=== PATIENT | male | born 1965 | race Caucasian/White ===

== ENCOUNTER 2016-07-04 20:09 | Inpatient (IN) ==
[2016-07-04] MEDS ORDERED: ZOFRAN IV ONE ×2 (20:34→23:02)
[2016-07-04] MEDS ORDERED: MORPHINE IV ONE ×2 (20:34→20:48)
[2016-07-04 21:08] LABS: MANUAL DIFF NEEDED? NO
[2016-07-04 21:11] LABS: BASO% 0.2 % (0.0-0.8); EOS% 1.2 % (0.0-10.0); HEMATOCRIT 40.3 % (42.0-52.0); HEMOGLOBIN 14.7 g/dL (14.0-18.0); IMM GRAN# 0.02 X1000 (0.0-0.04); IMM GRAN% 0.2 % (0.0-0.5); LYMPH# 1.41 X1000 (1.2-3.4); LYMPH% 17.2 % (20.5-51.1); MCH 34.7 PG (27-31); MCHC 36.5 g/dL (33-37); MONO# 0.93 X1000 (0.11-0.59); MONO% 11.3 % (1.7-9.3); MPV 11.2 FL (7.4-10.4); NEUT% 69.9 % (42.2-75.2); PLT 122 X1000 (130-400); RBC 4.24 XMIL (4.7-6.1)
[2016-07-04 21:26] LABS: AGAP 11; ALBUMIN 2.8 g/dL (3.5-5.0); ALKALINE PHOSPHATASE 293 U/L (32-122); AMYLASE 62 U/L (20-200); BUN 9 mg/dL (8-22); CALCIUM 8.1 mg/dL (8.8-10.2); CHLORIDE 102 mmol/L (98-107); COSMO 269; GOT 244 U/L (10-34); GPT 277 U/L (10-44); LIPASE 102 U/L (13-60); POTASSIUM 3.3 mmol/L (3.5-5.1); SODIUM 135 mmol/L (136-145); TCO2 22 mmol/L (25-35); TOTAL BILIRUBIN 0.98 mg/dL (0.20-1.00); TOTAL PROTEIN 7.4 g/dL (6.3-8.3)
--- NOTE | 2016-07-04 22:29 | Diag Imaging Result Document ---
PROCEDURE NAME: FLAT/UPRIGHT ABD/1 VIEW CHEST - 07/04/2016 FRONTAL CHEST X-RAY AND 2 VIEWS OF THE ABDOMEN: COMPARISON: None. FINDINGS: There is some strandy atelectasis in the lung bases. No substantial infiltrates. Heart size is normal. No pneumothorax or large effusion. Abdomen is dense consistent with ascites. No bowel obstruction or free air. No abnormal calcifications. There is a severe chronic deformity of the right hip, probably a chronic subcapital hip fracture and secondary osteoarthritis. IMPRESSION: Ascites.
--- NOTE | 2016-07-04 22:32 | PROVIDER DOCUMENTATION ---
This chart was entered by Pia Sheppard Scribe, acting as scribe for Maryanne Burnham PA. HPI-Abdominal Pain/GI Problem - General Chief Complaint: Abdominal Pain Stated Complaint: ABD PAIN Time Seen by Provider: 07/04/16 20:13 Source: patient Allergies/Adverse Reactions: Patient Allergies Allergy/AdvReac Type Severity Reaction Status Date / Time No Known Allergies Allergy Verified 07/04/16 20:22 Home Medications: Home Medication List Medication Instructions Recorded Confirmed Last Taken Type NK [No Home Medications] 07/04/16 07/04/16 Unknown History - History of Present Illness-ABD Nature of Presenting Problems: 51 year old M presents to the ED with a cc of ABD pain and distention with an onset of 1 week ago. Pt states that he had a small bowel movement today but it was not normal. Pt denies nausea, vomiting, and diarrhea. Abdominal Pain Onset Location: reports: generalized abdomen Pain Radiation: reports: no radiation Quality of Pain: reports: aching Severity in ED: reports: mild Onset/Duration: reports: 1 week ago Timing: reports: still present, constant Activities at Onset: reports: none Modifying Factors: improves with: nothing Associated Symptoms: reports: constipation Bruising or Bleeding Gums?: No Similar Symptoms Previously?: No Recently seen or treated by another doctor?: No Review of Systems - Adult - REVIEW OF SYSTEMS - ADULT Constitutional: denies: chills, fever Eyes: reports: no symptoms reported Ears, Nose, Mouth & Throat: reports: no symptoms reported Cardiovascular: denies: chest pain, palpitations Respiratory: reports: shortness of breath. denies: cough Gastrointestinal: reports: abdominal pain, constipation. denies: diarrhea, nausea, vomiting Genitourinary: reports: no symptoms reported Musculoskeletal: reports: no symptoms reported Integumentary: reports: no symptoms reported Neurological: reports: no symptoms reported Psychiatric: reports: no symptoms reported Endocrine: reports: no symptoms reported Hematologic/Lymphatic: reports: no symptoms reported Allergic/Immunologic: reports: no symptoms reported All Other Systems: Reviewed and Negative Past History - Adult - PAST MEDICAL HISTORY-ADULT Review of Records: reports: Nursing Assessment Review, Medications Reviewed Major Childhood Illnesses: reports: denies history - PRIOR SURGERIES/PROCEDURES Surgical/Procedure History: reports: none - IMMUNIZATION STATUS Childhood Immunizations: See Nurse Assessment Flu Vaccine: See Nurse Assessment - SOCIAL HISTORY Smoking: cigarettes Provider spent 3-5 mins advising pt. on dangers of tobacco.: Discussed manners to quit use, and f/u contacts for add'l counseling. Substance Use: amphetamines, cocaine Alcohol Use Frequency: twice a week Number of drinks per typical drinking period:: 3-4 drinks Physical Exam-General - PHYSICAL EXAM-ADULT Initial Vital Signs Reviewed: Yes - CONSTITUTIONAL General Appearance: alert, mild distress - RESPIRATORY Respiratory: chest non-tender, lungs clear, normal breath sounds - CARDIOVASCULAR Cardiovascular: normal peripheral pulses, regular rate, rhythm, no edema - GASTROINTESTINAL (ABDOMEN) Abdominal Exam: distended, tenderness (generalized) - MUSCULOSKELETAL Back Exam: no CVA tenderness - SKIN Integumentary: normal color, normal turgor, warm/dry - PSYCHIATRIC Psych/Mental Status: normal mood/affect, normal thought content, normal thought process, oriented x 3 Progress - PLAN OF CARE/RESULTS Progress/Plan/Lab Results: Vital Signs - 8 hr 07/04/16 20:17 Temperature 98.2 F Pulse Rate 89 Respiratory Rate 18 Blood Pressure 144/80 O2 Sat by Pulse Oximetry 98 Orders Category Date Time Status Saline Loc DIRECTED Care 07/04/16 20:34 Active NPO Diet 07/04/16 20:34 Active FLAT/UPRIGHT ABD/1 VIEW CHEST [RAD] Stat Exams 07/04/16 20:34 Ordered AMYLASE [CHEM] Stat Lab 07/04/16 20:34 Uncollected CBC WITH ELECTRONIC DIFF [HEME] Stat Lab 07/04/16 20:34 Uncollected COMPREHENSIVE METABOLIC PANEL [CHEM] Stat Lab 07/04/16 20:34 Uncollected LIPASE [CHEM] Stat Lab 07/04/16 20:34 Uncollected URINALYSIS W/POSS RFLX CULT-1 [URINALYSIS] Stat Lab 07/04/16 20:34 Uncollected URINE DRUG SCREEN Stat Lab 07/04/16 20:34 Uncollected Morphine Med 07/04/16 20:34 Discontinued 10 mg IV NOW ONE Ondansetron [Zofran] Med 07/04/16 20:34 Discontinued 4 mg IV NOW ONE Discussed with Dr. Cunningham, agrees with treatment, disposition and plan. Result Diagrams: 07/04/16 21:00 07/04/16 21:00 - EKG 1 Time of EKG reading by physician:: 23:04 EKG Read and Signed by:: Gelacio Cunningham EKG Interpretation (*Must complete 3 of following elements*): Normal Rate: 74 Rhythm: NSR [place]: normal - XRAY 1 XRAY: Bilateral XRAY Study: Abdomen Impression: Normal (no specific bowel gas pattern) - CT/MRI 1 CT Study: Abdomen, Pelvis Impression: Abnormal (cirrhosis. large amount of ascities. Severe chornic deformity of the right hip per Dr. Irving, radiology) - CONSULTS/PCP/HOSPITALIST Notification #1 *Consult/PCP/Hospitalist*: Dr. Lam, hospitalist Time Discussed: 22:38 Reason/Comments: cirhrossis, ascites Consult Disposition: Admit Departure - Departure Time of Disposition Decision: 22:39 DIAGNOSIS: Cirrhosis Qualifiers: Hepatic cirrhosis type: unspecified hepatic cirrhosis Ascites presence: with ascites Qualified Code(s): K74.60 - Unspecified cirrhosis of liver Ascites Qualifiers: Ascites type: other type Qualified Code(s): R18.8 - Other ascites Disposition: ADMITTED INPATIENT 09 Certified Medical Emergency: Emergent Condition: Stable Referrals and Follow-Ups: None,PCP [Primary Care Provider] - - Critical Care Note This patient required my direct & personal management of CC.: No Attestation - Physician/ GÓMEZ Attestation Patient care was provided by Advanced Practice Provider:: Yes Advanced Practice Provider:: Maryanne Burnham Advanced Practice Provider documentation review:: The Mid-level provider documentation, treatment plan and medical decision making was reviewed by the physician who agrees with all treatment and medical decision making by the P. This chart was documented by the paolo bloom, (Pia Sheppard Scribe) and accurately reflects the services I performed and decisions made by , Maryanne Burnham PA, as attested by the provider's signature.
[2016-07-04 23:36] LABS: MAGNESIUM 1.8 mg/dL (1.5-2.7)
[2016-07-04 23:40] LABS: INR 1.33; PROTIME 14.2 Seconds (9.2-11.7); PTT 31.8 Seconds (22.0-36.0)
[2016-07-05 00:04] LABS: CK INDEX 2.3 (0.0-2.5); CK-MB 4.85 ng/mL (0.0-5.0)
[2016-07-05] MEDS ORDERED: TYLENOL PO PRN (00:49)
[2016-07-05] MEDS ORDERED: POTASSIUM CHLORIDE 20 MEQ/SWI 20 MEQ/100 ML IVPB IV ONE (01:48)
[2016-07-05] MEDS: MORPHINE IV PRN ×3 (02:51→22:26)
[2016-07-05] MEDS: ZOFRAN IV PRN (02:51)
[2016-07-05] MEDS ORDERED: PNEUMOVAX 23 IM ONE (03:44)
--- NOTE | 2016-07-05 05:51 | HISTORY AND PHYSICAL ---
TIME: 2315 hours. CHIEF COMPLAINT: Abdominal pain. HISTORY OF PRESENT ILLNESS: Mr. Arroyo is a 51-year-old male, who reports no previous medical problems or past surgeries. He presents to the ER tonight complaining of abdominal pain and distention that started approximately 1 week ago last Saturday. He states that the pain in his abdomen is generalized and is pressure in nature. He denies any nausea, vomiting or diarrhea. He reports that his last bowel movement was yesterday and was normal in color. No hematochezia or melena. Patient denies any dysuria though did report some problems with urinary retention when his abdominal pain and distention first began but denied any recent problems with this over the last few days. He reports associated symptoms of shortness of breath and some substernal chest pain as well. He states that both his shortness of breath and his chest pain began when his abdominal pain started. He reports that his chest pain is nonradiating. It stays localized in the substernal area and is also a pressure-type feeling in nature. He denies any recent illicit drug use, though does report a previous history of methamphetamine and cocaine use. The patient also reports that he drinks approximately a 6-pack a month, no more than 1-2 beers a week. He denied any previous heavier alcohol use. Upon evaluation in the ER, the patient was found to have a distended abdomen. He was having some abdominal discomfort as well. The patient is also dyspneic. This is likely secondary to his distended abdomen. He was found to have elevated liver enzymes as well as elevated lipase of 102. An abdomen flat and upright showed ascites. A CT of the abdomen and pelvis was also performed, which showed cirrhosis with a large amount of ascites. At this time, the patient will be admitted for further evaluation. REVIEW OF SYSTEMS: A 14-point review of systems was conducted with the patient and all were negative except for pertinent positives mentioned above in HPI. PAST MEDICAL HISTORY: The patient denies any previous past medical problems. SURGICAL HISTORY: The patient denies any previous surgeries. SOCIAL HISTORY: Patient is a current half a pack per day smoker. He has done so since the age of 15. He denies any present illicit drug use, though does report a history of methamphetamine and cocaine abuse in the past. The patient states that he drinks approximately a 6- pack a month. He states no more than 1-2 beers a week and denies any previous heavier alcohol use. The patient reports that he currently lives here in [place]. He is disabled. FAMILY HISTORY: The patient reports that he does not have contact with his mother or father and does not know their past medical history. He reports that he has 1 brother that is and 1 brother that is living, though does not have contact with him either. ALLERGIES: The patient denies any known allergies. HOME MEDICATIONS: Patient denies any home medications or [id number] regular medication use. He does report that over the past few days that he has been using BC powders for pain relief approximately 1-2 a day. DIAGNOSTIC DATA: Laboratory results: White blood cell count 8.2, hemoglobin 14.7, hematocrit 40.3, platelet count 122,000. PT 14.2, INR 1.3, PTT 31.8. Sodium 135, potassium 3.3, chloride 102, bicarb 22, BUN 9, creatinine 0.6, glucose 108, calcium 8.1, magnesium 1.8, total bilirubin is 0.98, AST 244, ALT 27, alkaline phosphatase 293. Ammonia level is 131, CK Total 213. CK index is 2.3. CK-MB is 4.85, troponin was less than 0.01. Albumin level is 2.8, amylase 62, lipase 102. DIAGNOSTIC STUDIES: EKG shows normal sinus rhythm at a rate of 74, with a QTc of 440. CT abdomen pelvis with IV contrast showed cirrhosis with a large amount of ascites. There is also noted a severe chronic deformity of the right hip, per radiology. The patient did have a portable chest x-ray, which showed a possible slight increased pulmonary vascular markings, though no acute abnormality noted, though we are awaiting the official radiology over-read. PHYSICAL EXAMINATION: VITAL SIGNS: Temperature 98.3 degrees, heart rate 73, respirations 16, blood pressure 142/85, oxygen saturation is 99% room air. GENERAL: Mr. Arroyo is a pleasant 51-year-old male, who was resting in the ER stretcher. Though he was slightly dyspneic upon examination, he was not in any acute distress and was maintaining adequate oxygen saturation at 98% on room air. He was awake, alert and able to answer all questions appropriately. HEENT: Head is atraumatic, normocephalic. Pupils are equal, round, react to light, and were 3 mm bilaterally and brisk. Sclerae were white. No lesions noted. Subconjunctivae were pink. Oral mucosa was moist. Oropharynx was clear. NECK: Supple. Trachea midline. No JVD noted. No carotid bruits noted upon auscultation bilaterally. CARDIOVASCULAR: Patient has normal S1, S2. No murmurs, gallops, or rubs appreciated with a regular rate and rhythm. PULMONARY: Patient has symmetrical chest expansion bilaterally. Lung sounds were clear to auscultation in bilateral full aguilar. ABDOMEN: Slightly firm and distended. Patient has had generalized tenderness noted upon palpation. Bowel sounds were present in all 4 quadrants were hyperactive. EXTREMITIES: No cyanosis, clubbing, or edema noted. Pulse, motor and sensory were intact in all extremities. Radial pulses as well as pedal pulses bilaterally with 3+. Capillary refill was less than 3. INTEGUMENTARY: Patient's skin was pink, warm, dry, and intact. No lesions or sores noted. NEUROLOGICAL: Patient was alert, oriented to person, place, time, and situation. Cranial nerves 2-12 were grossly intact. ASSESSMENT AND PLAN: 1. Cirrhosis with ascites. For this, we have placed an order for the patient to have a therapeutic paracentesis in the morning. We will do an infusion of albumin prior to the procedure. We have placed a Gastroenterology consult with Dr. Delacruz and will await her evaluation and further recommendations as well. We have also placed a hepatitis profile and are awaiting those results. The patient does have a history of alcohol abuse , though he denies any heavy everyday drinking. We will closely monitor him for any signs and symptoms of alcohol withdrawal and will continue to monitor. 2. Abdominal pain. For this, we have placed an order for the patient to receive 4 mg of morphine IV q.4 hours p.r.n. for pain. 3. Dyspnea. The patient does report associated dyspnea as well as some substernal chest pain that began with the onset of his abdominal pain and distention. We will closely monitor the patient's respiratory status. We have placed orders for supplemental oxygen as needed though at this time, he is maintaining oxygen saturation of 98% on room air. He will be placed on telemetry also. To further evaluate his chest pain, we did order a series of cardiac enzymes and we will continue to his cardiovascular status closely. 4. Transaminitis. This is likely related to patient's cirrhosis. We will continue to monitor this. We will repeat a CMP in the morning. We will avoid hepatotoxic medications and will continue to monitor closely. 5. Mild hypokalemia. We did replace this with 20 mEq of potassium IV over 2 hours and will recheck his potassium level with morning labs. 6. Alcohol abuse. We will counseling on the importance of him to stop drinking given his findings of cirrhosis with ascites and transaminitis and will continue to follow. 7. Tobacco abuse. We will continue to camp head counselor the patient on smoking cessation during his admission and upon discharge. We will give the patient a nicotine patch while in the hospital and will continue to follow. The patient will be placed on the medical floor with telemetry. He will have vital signs q.4 hours. We will do strict intake and output. DVT prophylaxis will be provided with SCDs at this time given that the patient will be going for paracentesis in the morning. He will be NPO until his abdominal ultrasound is performed and his paracentesis is performed and then we can resume a regular diet. Pending diagnostic studies at this time are urinalysis, urine drug screen, hepatitis profile, abdominal ultrasound and ultrasound-guided paracentesis. Further orders and recommendations pending hospital course, diagnostic studies and physician evaluation. Dictated by BRITNI Arreola for Mariaa Lam MD cc: Mariaa Lam MD MTDD
[2016-07-05] MEDS ORDERED: ALBUMIN 25% IV SCH ×3 (06:00→06:37)
[2016-07-05 06:24] LABS: MANUAL DIFF NEEDED? NO
[2016-07-05 06:28] LABS: BASO% 0.3 % (0.0-0.8); EOS# 0.07 X1000 (0.0-0.7); EOS% 0.8 % (0.0-10.0); HEMATOCRIT 43.9 % (42.0-52.0); HEMOGLOBIN 15.2 g/dL (14.0-18.0); IMM GRAN# 0.02 X1000 (0.0-0.04); IMM GRAN% 0.2 % (0.0-0.5); LYMPH# 1.74 X1000 (1.2-3.4); MCH 33.6 PG (27-31); MCHC 34.6 g/dL (33-37); MCV 97.1 FL (81-99); MONO# 0.88 X1000 (0.11-0.59); MONO% 9.6 % (1.7-9.3); NEUT% 70.1 % (42.2-75.2); PLT 134 X1000 (130-400); RBC 4.52 XMIL (4.7-6.1)
--- NOTE | 2016-07-05 06:36 | EKG Report ---
Test Performed on : 07/04/2016 11:04:26 PM Test Reason : SOB Blood Pressure : / mmHG Vent. Rate : 074 BPM Atrial Rate : 074 BPM P-R Int : 126 ms QRS Dur : 078 ms QT Int : 398 ms P-R-T Axes : 052 001 027 degrees QTc Int : 441 ms Normal sinus rhythm. Normal ECG No previous ECGs available Unconfirmed Result
[2016-07-05 07:06] LABS: AGAP 10; ALBUMIN 2.9 g/dL (3.5-5.0); ALKALINE PHOSPHATASE 252 U/L (32-122); BUN 11 mg/dL (8-22); CALCIUM 8.4 mg/dL (8.8-10.2); CHLORIDE 101 mmol/L (98-107); COSMO 269; GOT 258 U/L (10-34); GPT 283 U/L (10-44); POTASSIUM 4.1 mmol/L (3.5-5.1); SODIUM 135 mmol/L (136-145); TCO2 24 mmol/L (25-35); TOTAL BILIRUBIN 1.57 mg/dL (0.20-1.00); TOTAL PROTEIN 8.2 g/dL (6.3-8.3)
--- NOTE | 2016-07-05 08:04 | Diag Imaging Result Document ---
PROCEDURE NAME: CHEST-PORTABLE - 07/04/2016 PORTABLE CHEST X-RAY, 07/05/2016: COMPARISON: 07/04/2016. FINDINGS: Lung volumes are much lower, now severely low, with strandy atelectasis or infiltrate in the lung bases. Otherwise, no change. IMPRESSION: Lower lung volumes with worsening bibasilar infiltrates or atelectasis.
--- NOTE | 2016-07-05 08:32 | Diag Imaging Result Document ---
PROCEDURE NAME: CT ABD/PELVIS W/ IV CONT ONLY - 07/04/2016 CT OF THE ABDOMEN WITH INTRAVENOUS CONTRAST AND CLARITY: FINDINGS: There is dependent atelectasis in the lung bases. There is marked ascites. The liver is shrunken and nodular in contour consistent with cirrhosis. There are no previous studies available for comparison. The spleen measures 13.3 cm in superior inferior dimension which is slightly above the normal range. The adrenal glands are not enlarged. There may be some esophageal varices and there are gastric varices. The gallbladder is distended measuring 8.7 cm in length and 5.4 cm in short axis. The portal vein is patent. The pancreas is unremarkable. The adrenal glands are not enlarged. There are 2 discontinuous segments of the proximal small bowel which are distended. This may be due to ileus. There is gas and stool in the colon. The kidneys are without evidence of hydronephrosis or mass. There is no evidence of significant adenopathy. CT OF THE PELVIS WITH INTRAVENOUS CONTRAST: The appendix is normal in appearance. There is a large amount of free fluid. There is gas and stool in the rectum. There are severe degenerative changes in the right hip. There is some minimal spondylotic changes in the lumbar spine. IMPRESSION: Severe cirrhosis with ascites. Possible ileus. Comparison with previous studies, if available, is recommended.
--- NOTE | 2016-07-05 13:15 | Diag Imaging Result Document ---
PROCEDURE NAME: US ABDOMEN-COMPLETE - 07/05/2016 ULTRASOUND ABDOMEN COMPLETE: COMPARISON: CT abdomen and pelvis, 07/04/2016. FINDINGS: The liver is severely atrophic and nodular as well as hyperechoic. This is compatible with severe cirrhosis. The gallbladder is mildly dilated. No wall thickening. There is moderate to large ascites. Both kidneys are normal. Spleen is enlarged measuring 13.4 x 12.3 x 5.7 cm. The common bile duct measures 5 mm. Aorta, IVC, and main portal vein are patent. The pancreas is normal. IMPRESSION: Advanced hepatic cirrhosis. Dilated gallbladder, nonspecific. Ascites.
--- NOTE | 2016-07-05 13:16 | Diag Imaging Result Document ---
PROCEDURE NAME: US PARACENTESIS - 07/05/2016 ULTRASOUND-GUIDED PARACENTESIS: COMPARISON: None. FINDINGS: The risks and benefits of the procedure were discussed with the patient. All questions were answered. Written and verbal informed consent was obtained. Overlying skin was prepped and draped in sterile fashion. Anesthesia was injected with injection of 7 mL of 1% lidocaine. The paracentesis catheter was advanced until the return of relatively clear ascites fluid. 1.2 L was removed. The catheter was withdrawn intact. The patient reported no symptoms from the procedure. IMPRESSION: Successful and uncomplicated ultrasound-guided paracentesis.
[2016-07-05 19:47] LABS: TOTAL PROTEIN 0.4 g/dL (6.3-8.3)
[2016-07-05 20:11] LABS: DIFF NEEDED? YES; MONOS 95 %; POLYS 5 %; WBC BF 210 /cumm
[2016-07-05 21:40] LABS: URINE CULTURE NEEDED? NO; URINE MICRO REVIEW NEEDED? NO; URINE SOURCE CLEAN CATCH
[2016-07-05 21:48] LABS: BILIRUBIN URINE NEGATIVE (NEGATIVE); BLOOD URINE NEGATIVE (NEGATIVE); COLOR YELLOW; GLUCOSE URINE NEGATIVE (NEGATIVE); LEUKOCYTES URINE NEGATIVE (NEGATIVE); NITRITE URINE NEGATIVE (NEGATIVE); PROTEIN URINE NEGATIVE (NEGATIVE); SP GRAVITY URINE 1.011; TURBIDITY URINE HAZY (CLEAR); UR EPITHELIAL CELLS <10 /HPF (<10); URINE BACTERIA NEGATIVE /HPF; URINE RBC <10 /HPF (<10); URINE WBC <10 /HPF (<10); UROBILINOGEN URINE 4 mg/dL (NORMAL)
[2016-07-05 22:44] LABS: UR AMPHETAMINES QUAL NONE DETECTED (NONE DETECT); UR BARBITUATES QUAL NONE DETECTED (NONE DETECT); UR BENZODIAZEPIN QUAL NONE DETECTED (NONE DETECT); UR CANNABINOIDS QUAL NONE DETECTED (NONE DETECT); UR COCAINE QUAL PRESUMPTIVE POSITIVE (NONE DETECT); UR METHADONE QUAL NONE DETECTED (NONE DETECT); UR OPIATES QUAL PRESUMPTIVE POSITIVE (NONE DETECT); UR OXYCODONE QUAL NONE DETECTED (NONE DETECT); UR PCP QUAL NONE DETECTED (NONE DETECT)
[2016-07-06] MEDS: MORPHINE IV PRN ×3 (03:38→23:34)
[2016-07-06] MEDS ORDERED: TUMS EXTRA STRENGTH PO ONE (03:42)
[2016-07-06] MEDS ORDERED: PRILOSEC PO SCH (07:00)
[2016-07-06] MEDS ORDERED: ANUSOL-HC SUPP PR ONE (11:30)
[2016-07-06 11:45] LABS: HEPATITIS PROFILE ACUTE SEE COMMENTS
[2016-07-06] MEDS: NICODERM PATCH TD PRN ×2 (12:05→21:22)
--- NOTE | 2016-07-06 16:29 | PROGRESS NOTE ---
DATE: 07/06/2016 SUBJECTIVE: Patient reports feeling tired all over but denies any fever or chills. OBJECTIVE: This is a chronically ill-looking, malnourished and frail 51-year-old male, lying in bed, in no acute distress.HEENT: Head is normocephalic, atraumatic. Anicteric sclerae and pale conjunctivae. Mucous membranes moist. Neck: Supple. No JVD noted. No carotid bruits. No lymphadenopathy. No thyromegaly. Cardiovascular: S1, S2 heard. No murmurs, gallops, or rubs. Regular rate and rhythm. Respiratory: Clear bilaterally to auscultation. No work of breathing or using accessory muscles. Abdomen: Ascites clearly noted. No signs of peritoneal irritation. Bowel sounds present. No organomegaly. Extremities: No clubbing, cyanosis, or edema. Peripheral pulses present in both legs. Neurological: Patient is awake, alert. LABORATORY DATA: Hepatitis panel, reported hepatitis surface antibody present. Hepatitis C present. ASSESSMENT AND PLAN: 1. Cirrhosis with ascites. We had a long conversation with the patient about social history. He reports that he was a careless drinker and also initially in the [facility] it was documented that he was not using any drugs. Now he admits that he was using IV drugs in this case, meth of approximately 1 year ago a few times according to him. At this time, although he is not completely sure it could be 6 months ago too so that could be the reason why he got hepatitis B. Also the hepatitis C is positive so what we are going to do is to do PCR to check viral load. Also we are going to check HIV to see if there is no infection. Patient advised to contact his sexual partner to inform her that she needs to be checked as well. At this point, we are going to keep this patient in the hospital. Will wait for the results of the ascetic fluid to confirm that this ascites is because of portal hypertension. 2. Transaminitis. That is because of the acute hepatitis that the patient has developed. 3. Alcohol abuse. Patient has been advised about stopping drinking alcohol and he was informed that if he starts drinking alcohol again with this chronic hepatitis C and on top of this, acute hepatitis B infection, he may shortly. 4. Regarding tobacco abuse he has been encouraged to stop smoking. cc: Dorian Aceves MD
[2016-07-06] MEDS: ANUSOL-HC SUPP PR SCH (23:39)
[2016-07-07 08:43] LABS: INR 1.44; PROTIME 15.5 Seconds (9.2-11.7)
[2016-07-07] MEDS: ANUSOL-HC SUPP PR SCH ×2 (09:45→20:30)
[2016-07-07 10:47] LABS: HIV ANTIBODY SCREEN SEE COMMENTS
[2016-07-07] MEDS: MORPHINE IV PRN ×2 (15:24→20:30)
--- NOTE | 2016-07-07 15:24 | PROGRESS NOTE ---
DATE: 07/07/2016 SUBJECTIVE: The patient reports feeling fine. Denies any fever, chills, nausea, vomiting. OBJECTIVE: Vital Signs: Temperature 98.0 degrees, heart rate 97, respiratory 17, blood pressure 121/75, O2 saturation 98% on room air. General examination: This is a chronically ill-looking malnourished and frail 51-year-old male, lying in bed, in no acute distress. HEENT: Head is normocephalic, atraumatic. Anicteric sclerae and pale conjunctivae. Mucous membranes moist. Neck: Supple. No JVD noted. No carotid bruits. No lymphadenopathy. No thyromegaly. Cardiovascular: S1, S2 heard. No murmurs, gallops, or rubs. Regular rate and rhythm. Respiratory: Clear bilaterally to auscultation. No work of breathing or using accessory muscles. Abdomen: Soft, nontender to palpation. Bowel sounds present. No organomegaly. Extremities: No clubbing, cyanosis, or edema. Peripheral pulses present in both legs. Neurological: Patient alert and oriented x3. Able to move 4 extremities. LABORATORY DATA: HIV is negative. ASSESSMENT AND PLAN: 1. Cirrhosis with ascites. This is definitely multifactorial secondary to liver infection, hepatitis infection and also a long history of alcoholism. At this time, we are going to continue with the same conservative measures on this patient. Avoid nephrotoxic drugs and also GI is following this patient. They are going to check general labs and PCR to start treating this condition. 2. Alcohol abuse. Patient has been advised extensively about stopping drinking alcohol. 3. Tobacco abuse. Patient has been encouraged to stop smoking as well. cc: Dorian Aceves MD
[2016-07-07] MEDS: ZOFRAN IV PRN ×2 (15:33→20:30)
--- NOTE | 2016-07-07 18:59 | PROGRESS NOTE ---
DATE: 07/06/2016 SUBJECTIVE: The patient states that he feels okay today. He denies symptoms. He states that his abdomen is less tender following a large volume paracentesis which was performed yesterday. Overall, he is tolerating some food and denies vomiting. It should be noted that he was only able to eat approximately 50% of his usual volume. He is having 2 solid bowel movements per day with no evidence of ileus or obstruction. OBJECTIVE: Vital Signs: On exam his blood pressure is 127/56, pulse 76, respiration 20, temperature of 98.5 degrees. Abdomen: Remains distended but is less distended following paracentesis. He continues to have diffuse abdominal discomfort. DATA: Objective testing reveals his ascites had 210 white blood cells with 5% polymorphonuclear cells suggesting no evidence of spontaneous bacterial peritonitis. His sag is greater than 1.1 consistent with uncomplicated alcoholic cirrhosis leading to ascites. On as hepatitis profile, hepatitis A is negative. However, he has a positive hepatitis B surface antigen , hepatitis B core IgM and a hepatitis B surface antigen consistent with an acute hepatitis B infection. He is also hepatitis C antibody positive. IMPRESSION: Cirrhosis and ascites secondary to alcohol abuse, hepatitis B and hepatitis C infections. RECOMMENDATION: 1. I would place the patient in a private room in light of his active hepatitis B infection. 2. Please check an HIV to rule out colon infection. 3. I will check additional serology to assess his hepatitis B DNA level as well as his hepatitis C RNA level. 4. I will also check a hepatitis C genotype in the event that we are able to begin treatment in the future. 5. Continue omeprazole for now. If he has any episode of vomiting I would transition to IV PPI therapy. 6. He will need an EGD on Saturday to assess the esophageal and gastric varices seen on the CT scan. 7. Begin contact isolation for his active hepatitis B infection. 8. Additional recommendations to follow based on his clinical course. cc: Dorian Aceves MD [facility]
--- NOTE | 2016-07-07 19:23 | PROGRESS NOTE ---
DATE: 07/07/2016 SUBJECTIVE: The patient states that he has had nausea and vomiting overnight. Otherwise, he denies abdominal pain. OBJECTIVE: Vital Signs: On exam, his blood pressure is 121/75, pulse 97, respirations 17, temperature of 98.0 degrees. Abdominal Exam: Reveals hypoactive bowel sounds. The abdomen is soft, but there is mild diffuse tenderness. There is obvious ascites. Extremities: Bilaterally are negative for cyanosis, clubbing, or edema. OBJECTIVE DATA: Reveals a PT of 15.5 with an INR of 1.44. IMPRESSION: 1. Alcohol liver disease. 2. Active hepatitis B. 3. Hepatitis C infection. 4. Ascites with no evidence of SBP. 5. HIV negative. 6. Nausea with vomiting. RECOMMENDATION: 1. I will schedule the patient for an EGD to assess his gastric and esophageal varices as well as the nausea with vomiting. 2. I will discontinue the Prilosec 40 mg daily and begin Protonix 40 mg IV q.12 hours. 3. Repeat his labs in the morning. 4. Additional recommendations to follow based on his endoscopic evaluation on Saturday. cc: MD Dorian Rosenberg MD
[2016-07-07] MEDS: PROTONIX IV SCH (20:30)
[2016-07-07] MEDS: NICODERM PATCH TD PRN (20:30)
[2016-07-07] MEDS: SODIUM CHLORIDE 0.9% INJ SCH (20:30)
--- NOTE | 2016-07-07 22:08 | CONSULTATION ---
DATE OF CONSULTATION: 07/05/2016 INDICATION FOR CONSULTATION: 1. Abdominal pain. 2. New onset ascites. 3. Newly diagnosed cirrhosis. 4. History of polysubstance abuse. 5. Ileus on CT scan. HISTORY OF PRESENT ILLNESS: Ms Arroyo is a 51-year-old white male who states that he has never really had any medical problems. He reports that approximately 3-4 weeks ago his abdomen began swelling. It was most pronounced approximately 1 week prior to admission. He notes the onset of increasing abdominal discomfort that subsequently transitioned to moderate abdominal pain. It was associated with shortness of breath as well as some substernal chest pain. He states that the pain in his chest began after his abdomen began hurting. He presented to the emergency room. The CT scan in the emergency room was remarkable for: 1.) Severe cirrhosis. 2.) Large ascites. and 3.) Probable ileus. There were esophageal as well as gastric varices. His gallbladder was distended but there were no stones present. His pancreas appeared to be normal. He also was noted to have distended loops in the small bowel due to an ileus. There was gas in the colon as well as stool in the colon suggesting no obstruction. There was no evidence of adenopathy. Because of the new onset liver disease as well as the ileus, we are asked to participate in his care. PAST MEDICAL HISTORY: None. PAST SURGICAL HISTORY: None. MEDICATION ALLERGIES: None. HOME MEDICATIONS: The patient uses BC powder 1-2 per day. SOCIAL HISTORY: The patient states that he has smoked a half a pack of cigarettes per day since the age of 15. He has no interest in stopping. That gives him 18 pack-year smoking history. The patient denies illicit drug use initially. However, he states that he has used methamphetamine and cocaine in the past. He denies IV drug use. He states that he currently drinks a 6 pack of beer on a regular basis but has decreased his intake to a 6 pack per month. He is disabled and lives alone in [place]. FAMILY HISTORY: The patient states that he has had no contact with his biological family. We have no history on that information. REVIEW OF SYSTEMS: Remarkable for shortness of breath, chest pain and abdominal distention. He notes mild nausea but no vomiting. PHYSICAL EXAMINATION: Vital Signs: His blood pressure is 150/73, pulse is 91, respirations 16, temperature of 98.5 degrees. HEENT: Reveals no evidence of jaundice. His conjunctivae are normal. His oropharyngeal mucous membranes are dry. Pulmonary: Lungs are clear to auscultation with normal respiratory effort anteriorly. There are decreased breath sounds in the bases bilaterally. Cardiovascular Exam: He has a regular rate and rhythm with no murmurs, gallops or rubs. Abdominal Exam: Reveals hypoactive bowel sounds. The abdomen is distended and firm. He has generalized tenderness. There is no rebound or guarding. Extremities: Bilaterally are negative for cyanosis, clubbing or edema. Musculoskeletal: Remarkable for temporal muscle wasting as well as wasting at the triceps and in his lower extremities suggestive of protein calorie malnutrition. Neurologic: The patient is alert and oriented x3 with appropriate mood, affect and memory. IMPRESSION: 1. Cirrhosis. 2. Ascites. 3. Abnormal liver function tests. 4. Alcohol abuse. 5. Polysubstance abuse. 6. Ileus on CT. 7. Protein calorie malnutrition. RECOMMENDATION: 1. The patient has newly diagnosed ascites with cirrhosis. He also has evidence of portal hypertension with varices on CT scan. I suspect this may be related to his chronic alcohol use. However, given his history of substance abuse, I would also check a hepatitis profile. If his hepatitis profile was positive, I would also obtain an HIV. 2. The patient notes only nausea but no vomiting. At this time, I would continue his omeprazole 40 mg daily. If he has vomiting, I would transition him to Protonix 40 mg IV q.12 hours. 3. We await the test results to determine the cause of his cirrhosis. Treatment will be based on his viral studies. 4. To screen for hepatocellular carcinoma, I would check an alpha fetoprotein level. 5. He will most likely need EGD to assess the size of his esophageal and gastric varices. 6. Because of his ongoing alcohol and substance abuse, he is not a candidate for liver transplant at this time. 7. Please monitor for signs and symptoms of withdrawal. 8. Additional recommendations to follow based on his clinical course. cc: MD Dr. Harjeet Rosenberg
[2016-07-08] MEDS: MORPHINE IV PRN ×6 (04:40→23:22)
[2016-07-08] MEDS: ZOFRAN IV PRN ×2 (04:40→11:54)
[2016-07-08 05:15] LABS: MANUAL DIFF NEEDED? NO
[2016-07-08 05:20] LABS: BASO% 0.7 % (0.0-0.8); EOS# 0.14 X1000 (0.0-0.7); EOS% 2.4 % (0.0-10.0); HEMATOCRIT 39.1 % (42.0-52.0); HEMOGLOBIN 13.5 g/dL (14.0-18.0); LYMPH# 1.03 X1000 (1.2-3.4); LYMPH% 17.7 % (20.5-51.1); MCH 34.1 PG (27-31); MCHC 34.5 g/dL (33-37); MCV 98.7 FL (81-99); MONO# 0.67 X1000 (0.11-0.59); MONO% 11.5 % (1.7-9.3); MPV 11.6 FL (7.4-10.4); NEUT% 67.7 % (42.2-75.2); PLT 58 X1000 (130-400); RBC 3.96 XMIL (4.7-6.1)
[2016-07-08 05:24] LABS: INR 1.43; PROTIME 15.4 Seconds (9.2-11.7)
[2016-07-08 05:37] LABS: AGAP 10; CHLORIDE 104 mmol/L (98-107); POTASSIUM 4.2 mmol/L (3.5-5.1); SODIUM 138 mmol/L (136-145); TCO2 24 mmol/L (25-35)
[2016-07-08 05:38] LABS: ALBUMIN 3.3 g/dL (3.5-5.0); ALKALINE PHOSPHATASE 203 U/L (32-122); BUN 9 mg/dL (8-22); CALCIUM 8.8 mg/dL (8.8-10.2); COSMO 275; GOT 135 U/L (10-34); GPT 150 U/L (10-44); TOTAL BILIRUBIN 1.71 mg/dL (0.20-1.00); TOTAL PROTEIN 6.7 g/dL (6.3-8.3)
[2016-07-08] MEDS: PROTONIX IV SCH ×3 (07:55→21:46)
[2016-07-08] MEDS: SODIUM CHLORIDE 0.9% INJ SCH ×2 (07:55→21:46)
[2016-07-08] MEDS: ANUSOL-HC SUPP PR SCH ×3 (11:55→23:08)
--- NOTE | 2016-07-08 15:50 | PROGRESS NOTE ---
DATE: 07/08/2016 SUBJECTIVE: Patient reports feeling fine. No fever or chills noted OBJECTIVE: Vital Signs: Temperature 97.8 degrees, heart rate 79, respiratory rate 17, blood pressure 132/79, O2 saturation 97% on room air. General: This is a chronically ill looking malnourished and frail 51-year-old, male, lying in bed, in no acute distress. HEENT: Head is normocephalic, atraumatic. Anicteric sclerae and pale conjunctivae. Mucous membranes moist. Neck: Supple. No JVD noted. No carotid bruits. No lymphadenopathy. No thyromegaly. Cardiovascular: Normal S1 S2 heard. No murmurs, gallops, or rubs. Regular rate and rhythm. Respiratory: Clear bilaterally to auscultation. No work of breathing or using accessory muscles. Abdomen: Soft, nontender to palpation. Bowel sounds present. No organomegaly. Extremities: No clubbing, cyanosis, or edema. Peripheral pulses present in both legs. Neurological: Patient alert and oriented x3. Able to move 4 extremities. Cranial nerves 2-12 grossly normal. LABORATORY DATA: 1. Reviewed. ASSESSMENT: 1. Cirrhosis with ascites. 2. Hepatitis C. 3. Hepatitis B. 4. Alcohol abuse. 5. Tobacco abuse. PLAN: 1. Patient is admitted to the hospital for cirrhosis with ascites and we know now this is secondary to hepatitis infections and chronic alcohol consumption. Dr. Delacruz from Gastroenterology is planning to do an EGD to evaluate gastric and esophageal viruses. After that, this patient can be discharged from my standpoint. 2. He I feeling fine. Not developing any encephalopathy. 3. Alcohol abuse. Patient advised to stopped drinking alcohol. 4. Tobacco abuse. Patient advised to stop smoking tobacco. cc: Dorian Aceves MD
[2016-07-08] MEDS: NICODERM PATCH TD PRN (21:45)
[2016-07-09] MEDS: MORPHINE IV PRN ×2 (02:31→06:09)
[2016-07-09 06:03] LABS: INR 1.44; PROTIME 15.5 Seconds (9.2-11.7)
[2016-07-09] MEDS: ANUSOL-HC SUPP PR SCH ×3 (07:51→22:18)
[2016-07-09] MEDS: SODIUM CHLORIDE 0.9% INJ SCH ×2 (07:51→22:17)
[2016-07-09] MEDS: PROTONIX IV SCH ×3 (07:51→22:17)
--- NOTE | 2016-07-09 13:11 | PROGRESS NOTE ---
DATE: 07/09/2016 SUBJECTIVE: Patient reports doing fine. No fever or chills. OBJECTIVE: Vital Signs: Temperature 98.3 degrees, heart rate 84, respiratory 22, blood pressure 137/79, O2 saturation 100% on room air. General: This is a chronically ill-looking, malnourished and frail 51-year-old male, looking older than his age, lying in bed in no acute distress. HEENT: Head is normocephalic, atraumatic. Anicteric sclerae and pale conjunctivae. Mucous membranes moist. Neck: Supple. No JVD noted. No carotid bruits. No lymphadenopathy. No thyromegaly. Cardiovascular: S1, S2 heard. No murmurs, gallops, or rubs. Regular rate and rhythm. Respiratory: Clear bilaterally to auscultation. No work of breathing or using accessory muscles. Abdomen: Soft, nontender to palpation. Ascites noted. Bowel sounds present but distant. No organomegaly. Extremities: No clubbing, cyanosis, or edema. Peripheral pulses present in both legs. Neurological: Patient is alert and oriented x3. Able to move 4 extremities. Cranial nerves 2-12 grossly normal. LABORATORY DATA: Reviewed. ASSESSMENT AND PLAN: 1. Cirrhosis with ascites, multifactorial. 2. Chronic alcohol abuse. 3. Tobacco abuse. 4. IV drug abuse. 5. Cocaine abuse. 6. Active hepatitis B. 7. Hepatitis C. PLAN: The patient by now has been worked up for reasons why this patient has developed isease. At this time, we are waiting for Dr. Delacruz to do an endoscopy to rule out any esophageal varices or whether we will start treating this condition, but generally speaking, this patient is doing much better so he can be discharged if okay with GI. cc: Dorian Aceves MD
[2016-07-09] MEDS ORDERED: VERSED ONE (15:18)
[2016-07-09] MEDS ORDERED: DIPRIVAN 1% ONE (15:18)
[2016-07-09] MEDS ORDERED: EXTENSION SET 32 IN 4522 ONE (15:20)
[2016-07-09] MEDS ORDERED: XYLOCAINE-MPF 2% ONE (15:20)
[2016-07-09] MEDS ORDERED: ANESTHESIA PB SET 88 IN 5742 ONE (15:20)
[2016-07-09] MEDS ORDERED: LR 1,000 ML ONE (15:20)
[2016-07-09 20:01] LABS: HEPATITIS C GENOTYPE SEE COMMENTS
[2016-07-09] MEDS: CARAFATE LIQUID PO SCH (22:17)
[2016-07-10] MEDS: MORPHINE IV PRN ×2 (01:15→06:34)
[2016-07-10] MEDS: CARAFATE LIQUID PO SCH ×5 (02:56→20:43)
[2016-07-10 06:04] LABS: INR 1.42; PROTIME 15.3 Seconds (9.2-11.7)
[2016-07-10] MEDS: CORGARD PO SCH ×3 (07:12→07:59)
[2016-07-10] MEDS: ANUSOL-HC SUPP PR SCH ×3 (07:51→20:43)
[2016-07-10] MEDS: SODIUM CHLORIDE 0.9% INJ SCH ×2 (07:51→20:43)
[2016-07-10] MEDS: PROTONIX IV SCH ×3 (07:51→20:43)
[2016-07-10] MEDS: NICODERM PATCH TD PRN (08:06)
[2016-07-10 09:05] LABS: MANUAL DIFF NEEDED? NO
[2016-07-10 09:13] LABS: BASO% 0.4 % (0.0-0.8); EOS# 0.05 X1000 (0.0-0.7); EOS% 0.6 % (0.0-10.0); HEMATOCRIT 34.9 % (42.0-52.0); HEMOGLOBIN 12.2 g/dL (14.0-18.0); LYMPH# 0.78 X1000 (1.2-3.4); MCH 33.8 PG (27-31); MCV 96.7 FL (81-99); MONO# 0.63 X1000 (0.11-0.59); MPV 11.8 FL (7.4-10.4); PLT 56 X1000 (130-400); RBC 3.61 XMIL (4.7-6.1)
[2016-07-10 11:27] LABS: HCV BY PCR SEE COMMENTS; HCV CHARGE YES
--- NOTE | 2016-07-10 12:25 | PROGRESS NOTE ---
DATE: 07/10/2016 SUBJECTIVE: This patient stated that he is feeling fine. He is complaining of mild abdominal pain and weakness. No fever. No chills. OBJECTIVE: Vital Signs: Temperature 98.3 degrees, pulse 58, respiratory rate 16, blood pressure 147/81, oxygen saturation 100% on room air. HEENT: Head normocephalic. No trauma. PERRLA. Neck: Supple. No JVD. No masses. Central trachea. Chest: Clear to auscultation. No wheezing. No rales. Abdomen: Soft, mildly distended. Mild generalized tenderness to palpation. Ascites noted. Extremities: No edema. No clubbing. No cyanosis. Neurological Examination: The patient is alert and oriented x3. He moves all 4 extremities. Laboratory Data: WBC 7.8, hemoglobin 12.2, hematocrit 34.9, platelets 56,000. ASSESSMENT AND PLAN: 1. Liver cirrhosis with ascites. Probably this is multifactorial. Pending lab work with hepatitis panel. Continue management by Dr. Delacruz. 2. Multiple ulcers at the level of the stoma and duodenum without any obstruction. Continue with Protonix 40 mg intravenous every 12 hours. Possible gastrointestinal bleed. His hemoglobin has been dropping since admission. He was admitted and the hemoglobin was 14.7 and today 12.2. Probably, this patient will be having a colonoscopy tomorrow. 3. Tobacco abuse. This patient has been highly advised against tobacco use. We will continue with daily cessation education. 4. Intravenous drug abuse/cocaine. Apparently, this patient has a past medical history of intravenous drugs abuse. I will continue with daily cessation education. 5. Active hepatitis B, history of hepatitis C. We will follow the recommendations of Gastroenterology Department. cc: Nash Llanos MD
[2016-07-10 13:37] LABS: HEPATITIS E IGM AB SEE COMMENTS
[2016-07-10] MEDS ORDERED: GOLYTELY PO ONE (14:00)
--- NOTE | 2016-07-10 23:59 | OPERATIVE NOTE ---
PROCEDURE DATE: 07/09/2016 REFERRING PHYSICIAN: Dorian Cosby M.D. INDICATION FOR PROCEDURE: 1. Cirrhosis. 2. Active hepatitis B. 3. History of hepatitis C. 4. Polysubstance abuse. 5. NSAID use. 6. Nausea with vomiting. 7. Abdominal pain. 8. Progressive anemia. PROCEDURE PERFORMED: Esophagogastroduodenoscopy. CONSENT: Informed consent was obtained from the patient prior to the procedure. The risks, benefits, and alternatives were discussed. MEDICATION: The patient received monitored anesthesia care. PERFORMING PHYSICIAN: Gaby Delacruz M.D. ASSISTANTS: 1. ST. Steven 2. Es Gee RN. 3. Cliff Ty RN. 4. Neil Carrasquillo CRNA. 5. Dixon Coffey M.D. (anesthesia). COMPLICATIONS: None. ESTIMATED BLOOD LOSS: None. SPECIMENS REMOVED: None. FINDINGS: After sedation was achieved, the upper endoscope was inserted to the third portion of the duodenum. The hypopharynx appeared normal. In the tubular esophagus, there were large esophageal varices with no stigmata of bleeding. The overlying mucosa appeared endoscopically normal. In the distal esophagus, the GE junction was irregular but there were no tongues of mucosa or obvious Lee's mucosa. The GE junction was measured at 40 cm from the incisors. There was a hiatal hernia that spanned from 40-44 cm. In the gastric lumen, there was portal gastropathy in the body and antrum. On retroflexed view, there were gastric varices in the fundus. In addition, there were scattered erosions in the fundus. On forward view, there was a serpiginous antral ulcer with no stigmata of bleeding. The antrum also had scattered erosions that were significantly deep. The pylorus was inflamed but patent. In the duodenal bulb, there was a greater than 1 cm whitish base ulcer. Upon further intubation, there were more than 6 ulcers in the duodenum extending to the 2nd portion that ranged in size from 5- 10 mm. The third portion of the duodenum was inflamed but widely patent. After the exam was complete, lumen was decompressed and the scope was removed without incident. IMPRESSION: 1. Large esophageal varices. 2. Hiatal hernia. 3. Portal gastropathy. 4. Gastric varices. 5. Antral ulcer. 6. Large duodenal ulcer. 7. Multiple smaller duodenal ulcers. RECOMMENDATION: 1. Continue Protonix 40 mg q.12 hours. 2. Add Carafate 1 g p.o. 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 3. Add nadolol 40 mg p.o. daily given the esophageal and gastric varices. 4. The patient has an autoimmune hepatitis panel and HIV test pending. 5. The patient currently drinks alcohol and has a history of polysubstance abuse as recently as 2 weeks before clinic. He is not considered a current candidate for liver transplant or evaluation at this time. 6. Treatment for the hepatitis B and hepatitis C will be based on his remaining liver function tests. 7. Additional recommendations to follow based on his clinical course. cc: Dorian Aceves MD [facility]
[2016-07-11] MEDS: CARAFATE LIQUID PO SCH ×4 (02:06→21:00)
[2016-07-11] MEDS: MORPHINE IV PRN ×2 (02:17→23:11)
[2016-07-11 06:47] LABS: INR 1.57
[2016-07-11 07:00] LABS: AGAP 12; BUN 11 mg/dL (8-22); CALCIUM 8.6 mg/dL (8.8-10.2); CHLORIDE 107 mmol/L (98-107); COSMO 278; POTASSIUM 3.6 mmol/L (3.5-5.1); SODIUM 140 mmol/L (136-145); TCO2 21 mmol/L (25-35)
[2016-07-11 07:01] LABS: BASO% 1.1 % (0.0-0.8); EOS# 0.07 X1000 (0.0-0.7); EOS% 1.1 % (0.0-10.0); HEMATOCRIT 39.3 % (42.0-52.0); HEMOGLOBIN 13.8 g/dL (14.0-18.0); LYMPH# 1.68 X1000 (1.2-3.4); LYMPH% 26.8 % (20.5-51.1); MANUAL DIFF NEEDED? YES; MCHC 35.1 g/dL (33-37); MCV 96.8 FL (81-99); MONO# 0.62 X1000 (0.11-0.59); MONO% 9.9 % (1.7-9.3); MPV 11.2 FL (7.4-10.4); NEUT% 61.1 % (42.2-75.2); PLT 90 X1000 (130-400); RBC 4.06 XMIL (4.7-6.1)
[2016-07-11 07:18] LABS: BANDS 4 % (0-1); EOS 2 % (1-10); LYMPHS 14 % (21-51); MONO 4 % (1-9)
[2016-07-11] MEDS ORDERED: VERSED ONE (08:35)
[2016-07-11] MEDS ORDERED: DIPRIVAN 1% ONE (08:36)
[2016-07-11] MEDS ORDERED: XYLOCAINE-MPF 2% ONE (09:24)
[2016-07-11] MEDS ORDERED: ANESTHESIA PB SET 88 IN 5742 ONE (09:24)
[2016-07-11] MEDS ORDERED: NS 1,000 ML ONE (09:24)
[2016-07-11] MEDS ORDERED: EXTENSION SET 32 IN 4522 ONE (09:24)
[2016-07-11 09:34] LABS: ALBUMIN 3.3 g/dL (3.5-5.0); DIRECT BILIRUBIN 0.7 mg/dL (0.00-0.20); TOTAL BILIRUBIN 2.38 mg/dL (0.20-1.00); TOTAL PROTEIN 6.7 g/dL (6.3-8.3)
[2016-07-11] MEDS: NICODERM PATCH TD PRN (11:04)
[2016-07-11] MEDS: PROTONIX IV SCH ×2 (11:04→22:00)
[2016-07-11] MEDS: SODIUM CHLORIDE 0.9% INJ SCH ×2 (11:04→22:45)
[2016-07-11] MEDS: CORGARD PO SCH (11:04)
[2016-07-11] MEDS: ANUSOL-HC SUPP PR SCH ×2 (11:05→22:45)
[2016-07-11] MEDS ORDERED: NS 500 ML ONE (11:39)
[2016-07-11] MEDS ORDERED: GOLYTELY PO ONE (14:00)
--- NOTE | 2016-07-11 15:07 | PROGRESS NOTE ---
DATE: 07/11/2016 SUBJECTIVE: This patient states he is feeling fine. He is still complaining of mild abdominal discomfort. Also he noticed some bleed with bowel movement. No fever. No chills. OBJECTIVE: Vital Signs: Temperature 96.9 degrees, pulse 48, respiratory rate 20, blood pressure 141/70, O2 saturation 100% on room air. HEENT: Head normocephalic. No trauma. PERRLA. Neck: Supple. No JVD. No masses. Central trachea. Chest: Clear to auscultation. No wheezing. No rales. Abdomen: Soft, mild distended, mild generalized tenderness to palpation. Ascites noted. Extremities: No edema. No clubbing. No cyanosis. Neurological: The patient is alert and oriented x3. He moves all 4 extremities. LABORATORY: WBC 6.2, hemoglobin 13.8, hematocrit 39.3, platelets 90,000. Sodium 140, potassium 3.6, chloride 107, bicarbonate 21, BUN 11, creatinine 0.5. Calcium 8.6. ASSESSMENT AND PLAN: 1. Liver cirrhosis with ascites probably this is multifactorial. This patient has hepatitis and also he was a heavy drinker. Continue management by Dr. Delacruz. 2. Large esophageal varices, portal gastropathy, gastroparesis, antral varices, large duodenal ulcer and multiple smaller duodenal ulcers. I will continue with Protonix 40 mg q.12 hours and Carafate. Also I will continue with nadolol but I will decrease the dose because of the bradycardia. 3. Multiple colonic polyps with bleeding polyps. This patient will be prepared again for colonoscopy tomorrow morning. Because of his bleed and coagulopathy he will receive FFPs and platelets. 4. Tobacco abuse. This patient has been highly advised against tobacco use. We will continue with daily cessation education. 5. Active hepatitis B and history of hepatitis C. We will follow the recommendations of Gastroenterology Department. 6. Intravenous drug abuse/cocaine. Apparently this patient has been using IV drugs. I will continue with daily cessation education. 7. History of alcohol abuse. Aware. Apparently this patient stopped drinking a while ago. I had a conversation with the patient and his brother. This patient was living in a small area without food, electricity. Also this patient is having generalized weakness. So we will try to send this patient to a rehab center. Apparently his brother after the rehabilitation is willing to take care of this patient and take this patient home with him. cc: Nash Llanos MD
[2016-07-12] MEDS: ZOFRAN IV PRN (03:06)
[2016-07-12] MEDS: CARAFATE LIQUID PO SCH ×4 (05:18→22:00)
[2016-07-12 06:38] LABS: BASO% 0.7 % (0.0-0.8); EOS# 0.12 X1000 (0.0-0.7); EOS% 1.7 % (0.0-10.0); HEMATOCRIT 37.7 % (42.0-52.0); HEMOGLOBIN 13.3 g/dL (14.0-18.0); IMM GRAN# 0.02 X1000 (0.0-0.04); IMM GRAN% 0.3 % (0.0-0.5); LYMPH# 2.16 X1000 (1.2-3.4); LYMPH% 30.5 % (20.5-51.1); MANUAL DIFF NEEDED? YES; MCHC 35.3 g/dL (33-37); MCV 96.4 FL (81-99); MONO# 0.75 X1000 (0.11-0.59); MONO% 10.6 % (1.7-9.3); MPV 11.7 FL (7.4-10.4); NEUT% 56.2 % (42.2-75.2); PLT 70 X1000 (130-400); RBC 3.91 XMIL (4.7-6.1)
[2016-07-12 06:41] LABS: LYMPHS 32 % (21-51); MONO 4 % (1-9)
[2016-07-12] MEDS ORDERED: CORGARD PO SCH (09:00)
[2016-07-12] MEDS: CORGARD PO SCH (09:10)
[2016-07-12] MEDS: ANUSOL-HC SUPP PR SCH ×2 (09:11→22:22)
[2016-07-12] MEDS: SODIUM CHLORIDE 0.9% INJ SCH ×2 (09:12→22:00)
[2016-07-12] MEDS: PROTONIX IV SCH ×2 (09:12→22:00)
[2016-07-12] MEDS ORDERED: NS 500 ML ONE ×2 (10:04→17:05)
[2016-07-12 12:29] LABS: UR AMPHETAMINES QUAL NONE DETECTED (NONE DETECT); UR BARBITUATES QUAL NONE DETECTED (NONE DETECT); UR BENZODIAZEPIN QUAL NONE DETECTED (NONE DETECT); UR CANNABINOIDS QUAL NONE DETECTED (NONE DETECT); UR COCAINE QUAL NONE DETECTED (NONE DETECT); UR METHADONE QUAL NONE DETECTED (NONE DETECT); UR OPIATES QUAL NONE DETECTED (NONE DETECT); UR OXYCODONE QUAL NONE DETECTED (NONE DETECT); UR PCP QUAL NONE DETECTED (NONE DETECT)
--- NOTE | 2016-07-12 13:48 | PROGRESS NOTE ---
DATE: 07/12/2016 SUBJECTIVE: This patient states that he is feeling fine. No acute events overnight. OBJECTIVE: Vital Signs: Temperature 98.4 degrees, pulse 52, respiratory rate 19, blood pressure 146/76, O2 saturation 100% on room air. HEENT: Head normocephalic. No trauma. PERRLA. Neck: Supple. No JVD. No masses. Central trachea. Chest: Clear to auscultation. No wheezing. No rales. Abdomen: Soft, mild tender to palpation at the level of the periumbilical area, ascites noted. Extremities: No edema. No clubbing. No cyanosis. Neurological: The patient is alert and oriented x3. He moves all 4 extremities. LABORATORY: WBC 7, hemoglobin 13.3, hematocrit 37.7, platelets 70,000. ASSESSMENT AND PLAN: 1. Liver cirrhosis with ascites. Probably this is multifactorial. This patient has hepatitis and also he was a heavy drinker. Continue management by Dr. Delacruz. 2. Large esophageal viruses, portal gastropathy, antral varices, large duodenal and multiple smaller duodenal ulcers. I will continue with Protonix 40 mg q.12 hours and Carafate. Also continue with nadolol, we decreased the dose because of bradycardia. 3. Multiple colonic polyps with bleeding polyps. This patient has been prepared for colonoscopy today again, because of his bleed and coagulopathy he will receive FFP and platelets probably. 4. Tobacco abuse. This patient has been highly advised against tobacco abuse. I will continue with daily cessation education. 5. Active hepatitis B and history of hepatitis C. We will continue following the recommendations of Gastroenterology Department. 6. Intravenous drug abuse/cocaine. We have a positive cocaine report upon admission. I will continue with daily cessation education. 7. History of alcohol abuse. Apparently this patient stopped drinking a while ago. We will monitor. 8. Physical deconditioning. Physical therapy is on board. Overall, this patient looks a little bit better. Today he is getting a colonoscopy done. lithographic general worker is on board. We are trying to get a rehab center for this patient. cc: Nash Llanos MD
[2016-07-12] MEDS ORDERED: FENTANYL ONE (14:07)
[2016-07-12] MEDS ORDERED: DIPRIVAN 1% 500 MG/50 ML BOTTLE ONE (14:07)
[2016-07-12 16:13] LABS: MANUAL DIFF NEEDED? NO
[2016-07-12 16:23] LABS: EOS# 0.09 X1000 (0.0-0.7); EOS% 1.7 % (0.0-10.0); HEMATOCRIT 34.1 % (42.0-52.0); LYMPH# 1.62 X1000 (1.2-3.4); LYMPH% 31.4 % (20.5-51.1); MCH 34.2 PG (27-31); MCHC 35.2 g/dL (33-37); MCV 97.2 FL (81-99); MONO# 0.59 X1000 (0.11-0.59); MONO% 11.4 % (1.7-9.3); MPV 10.7 FL (7.4-10.4); NEUT% 54.5 % (42.2-75.2); PLT 77 X1000 (130-400); RBC 3.51 XMIL (4.7-6.1)
[2016-07-12 16:27] LABS: INR 1.41; PROTIME 15.1 Seconds (9.2-11.7)
[2016-07-12] MEDS ORDERED: EPINEPHRINE SYRINGE ONE (16:39)
[2016-07-12] MEDS ORDERED: ANESTHESIA PB SET 88 IN 5742 ONE (17:05)
[2016-07-12] MEDS ORDERED: EXTENSION SET 32 IN 4522 ONE (17:05)
[2016-07-12] MEDS ORDERED: XYLOCAINE-MPF 2% ONE (17:05)
[2016-07-12] MEDS ORDERED: NS 1,000 ML ONE (17:05)
[2016-07-13] MEDS: MORPHINE IV PRN ×3 (01:44→17:12)
--- NOTE | 2016-07-13 02:34 | OPERATIVE NOTE ---
PROCEDURE DATE: 07/11/2016 REFERRING PHYSICIAN: Nash Llanos M.D. INDICATIONS FOR PROCEDURE: 1. Anemia. 2. Rectal bleeding. 3. Screening colonoscopy. PROCEDURE PERFORMED: Colonoscopy with biopsy. CONSENT: Informed consent was obtained from the patient prior to the procedure. The risks, benefits, and alternatives were discussed. MEDICATIONS: The patient received monitored anesthesia care. PERFORMING PHYSICIAN: Gaby Delacruz M.D. ASSISTANTS: 1. ST. Radha 2. Cliff Ty RN. 3. Karen Awad CRNA. 4. Jorje Robertson M.D. (anesthesia). COMPLICATIONS: There was mild bleeding from biopsy site. Cautery was required. It should be noted that the patient's INR is 1.57. ESTIMATED BLOOD LOSS: 2-3 mL. SPECIMENS REMOVED: 1. Ileal biopsies. 2. Random colon biopsies. CECAL INTUBATION TIME: 14 minutes due to poor bowel prep. WITHDRAWAL TIME: 14 minutes due to poor bowel prep. PREP QUALITY: Poor. FINDINGS: After sedation was achieved, the colonoscope was inserted to the terminal ileum. In the terminal ileum, there was mild nonspecific erythema with some bleeding after biopsy of the ulcerated areas. Hemostasis was achieved with black wire cautery. The appendiceal orifice and ileocecal valve appeared endoscopically normal. Throughout the colonic mucosa, there was copious amounts of fecal residue. After washing, there was nonspecific colonic erythema of unknown significance. Random colon biopsies were taken. There were multiple polyps in the transverse colon that ranged in size from 10-15 mm. There were 2 polyps between 60 and 70 cm that were approximately 10-15 mm in size. There was a polyp at 30 cm that was 5-10 mm in size. There was a semi-pedunculated, polypoid mass at 20 cm with active bleeding. Hemostasis was achieved but the mass was not removed due to bleeding after the biopsy, the elevated INR, and the poor bowel prep. After assessing the lesion, it was determined that it was too high risk to remove under the current circumstances. The lumen was decompressed and the scope was retracted into the rectum. In the upper rectum, there were grade 1 internal hemorrhoids. On retroflexed view, there were large external hemorrhoids. The lumen was decompressed and the scope was removed without incident. IMPRESSION: 1. Inflamed terminal ileum of unknown significance. 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 2. Nonspecific colonic erythema. 3. Multiple colon polyps. 4. Grade 1 internal hemorrhoids. 5. Large external hemorrhoids. 6. Poor bowel prep. RECOMMENDATIONS: 1. Await biopsy results. 2. I will type and screen the patient. 3. I will administer 1 unit of FFP tonight, followed by 2 units of FFP tomorrow prior to the endoscopy. 4. I will administer 1 unit of platelets in the morning. 5. He will receive another 4 L of GoLYTELY bowel prep tonight. 6. We will plan to repeat his colonoscopy in the morning. 7. Additional recommendations to follow based on his clinical course. cc: MD Nash Rosenberg MD [facility]
--- NOTE | 2016-07-13 02:41 | OPERATIVE NOTE ---
PROCEDURE DATE: 07/12/2016 INDICATIONS FOR PROCEDURE: 1. Multiple colon polyps seen on previous endoscopy. 2. Bleeding polypoid lesion at 20 cm that requires removal. PROCEDURES PERFORMED: 1. Colonoscopy with control of bleeding. 2. Colonoscopy with biopsy. 3. Colonoscopy with polypectomy. 4. Colonoscopy with Tanya ink injection x2. CONSENT: Informed consent was obtained from the patient prior to the procedure. The risks, benefits, and alternatives were discussed. MEDICATIONS: The patient received monitored anesthesia care. PERFORMING PHYSICIAN: Gaby Delacruz M.D. ASSISTANTS: 1. ST. Steven 2. Marleny Adams RN. 3. Cliff Ty RN. 4. Gely Parrish CRNA. 5. Jorje Robertson M.D. (Anesthesia). COMPLICATIONS: There were no procedural related complications. However, the patient did pull out his IV access during the procedure, which limited the length of the exam. ESTIMATED BLOOD LOSS: 3-4 mL. SPECIMENS REMOVED: 1. Biopsy of the ulcer at 50 cm. 2. Polypectomy at 45 cm. FINDINGS: After sedation was achieved, the pediatric colonoscope was inserted to the cecum. The bowel prep today is worse than yesterday. The cecal base was full of stool. After copious amounts of rinsing, the ileocecal valve and appendiceal orifice appeared grossly normal. Upon withdrawal, multiple polyps were seen. However, there was solid stool in pockets throughout the entire colon. It should be noted that at 50 cm there was a large hyperemic ulcer with heaped up edges that was biopsied. In addition, the site was marked with Tanya ink tattoo , 0.5 mL x1. 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 Immediately adjacent to the ulcer, there was an actively bleeding AVM that achieved hemostasis with cautery. Upon further withdrawal, there were multiple polyps seen. There was a flat polyp at 45 cm that was removed using snare cautery. At 20 cm, we were in the process of tattooing the semi-pedunculated, polypoid lesion at 20 cm when the patient pulled his IV out. After the Tanya ink injection, the decision was made to schedule the patient for a followup procedure, especially in light of the poor bowel prep. The lumen was decompressed and the scope was removed. It should be noted that the internal and external hemorrhoids that were seen on the previous exam were again visualized today. CECAL INTUBATION TIME: 5 minutes. WITHDRAWAL TIME: 30 minutes. PREP QUALITY: Poor. RECOMMENDATIONS: 1. We will plan to administer 2 additional units of FFP and 1 unit of platelets in light of the ulcer and the biopsies. 2. To help with the nonspecific colonic inflammation and the NSAID enteropathy, begin budesonide 9 mg p.o. daily for 9 weeks, followed by 6 mg daily for 2 weeks, and then 3 mg daily for 2 weeks. 3. We will plan to schedule the patient for outpatient colonoscopy. He will also require repeat EGD to assess his gastric and duodenal ulcers. 4. The patient had been consuming multiple packets of Goody powder and BC powder on a daily basis. He was instructed and encouraged to avoid NSAIDs. He expressed understanding. 5. We will have the patient return to clinic 2 weeks after hospital discharge. 6. We will make arrangements for his outpatient procedures once he has returned to clinic for subsequent evaluation. 7. After he is able to advance his diet overnight and as long as his hemoglobin remains stable, it will be reasonable to pursue outpatient management in the next 24-48 hours. cc: MD Nash Rosenberg MD MTDD
[2016-07-13] MEDS: CARAFATE LIQUID PO SCH ×2 (03:00→08:22)
[2016-07-13] MEDS: ENTOCORT EC PO SCH (08:20)
[2016-07-13] MEDS: SODIUM CHLORIDE 0.9% INJ SCH ×3 (08:23→22:07)
[2016-07-13] MEDS: ANUSOL-HC SUPP PR SCH ×2 (08:23→22:25)
[2016-07-13] MEDS: PROTONIX IV SCH ×3 (08:23→22:07)
[2016-07-13] MEDS: CORGARD PO SCH (08:23)
[2016-07-13 10:26] LABS: MANUAL DIFF NEEDED? NO
[2016-07-13] MEDS ORDERED: SODIUM CHLORIDE 0.9% INJ SCH (10:30)
[2016-07-13 10:36] LABS: BASO% 0.3 % (0.0-0.8); EOS# 0.06 X1000 (0.0-0.7); EOS% 0.9 % (0.0-10.0); HEMATOCRIT 32.8 % (42.0-52.0); HEMOGLOBIN 11.3 g/dL (14.0-18.0); LYMPH# 1.05 X1000 (1.2-3.4); LYMPH% 15.1 % (20.5-51.1); MCH 33.7 PG (27-31); MCHC 34.5 g/dL (33-37); MCV 97.9 FL (81-99); MONO# 0.71 X1000 (0.11-0.59); MONO% 10.2 % (1.7-9.3); MPV 10.4 FL (7.4-10.4); NEUT% 73.5 % (42.2-75.2); PLT 56 X1000 (130-400); RBC 3.35 XMIL (4.7-6.1)
--- NOTE | 2016-07-13 10:50 | DISCHARGE SUMMARY ---
ADMISSION DATE: 07/05/2016 DISCHARGE DATE: 07/13/2016 CONSULTATIONS: Dr. Gaby Delacruz with Gastroenterology. PERTINENT PROCEDURES: 1. Abdomen and pelvis CT showed severe cirrhosis with ascites, possible ileus. 2. Abdominal ultrasound showed advanced hepatic cirrhosis, distended gallbladder, nonspecific ascites. 3. Ultrasound-guided paracentesis where 1.2 L was removed. 4. EGD performed by Dr. Delacruz that showed esophageal varices, hiatal hernia, gastric varices, antral ulcer, large duodenal ulcer, and multiple smaller duodenal ulcers. 5. Colonoscopy performed by Dr. Delacruz showed an inflamed terminal ilium, multiple colon polyps, internal and external hemorrhoids. Poor bowel prep. Control of bleeding with Tanya ink. DISCHARGE DIAGNOSES: 1. Liver cirrhosis with ascites followed by Dr. Delacruz. The patient has hepatitis as well as heavy drinker, stable. 2. Large esophageal varices, portal gastropathy, antral varices, large duodenal multiple small duodenal ulcers. The patient to continue on PPI as well as Carafate, as well as Nadol. The dose was decreased secondary to bradycardia, stable. 3. Multiple colonic polyps with bleeding polyps. The patient underwent colonoscopy to control bleeding. He also received fresh frozen plasma and platelets, stable. 4. Tobacco abuse. Patient has been educated daily with cessation education. 5. Active hepatitis B and history of hepatitis C, again followed by Dr. Delacruz. 6. IV drug abuse; cocaine. The patient was positive on cocaine at admission. He was given daily cessation education, re-drug tested him for rehab, he was negative. 7. Alcohol abuse. The patient has stopped drinking a while ago. 8. Physical deconditioning. The patient has worked with physical therapy. He will be discharged to rehab. HOSPITAL COURSE: Mr. Arroyo is a 51-year-old male who reported no previous medical problems or past surgeries presented to the ED with complaint of abdominal pain and distention, well as pain in the abdomen that was generalized and pressure-like in nature. He reported normal bowel movements with normal color. He does report shortness of breath secondary to his abdominal distention. Workup in the ED revealed elevated liver enzymes as well as elevated lipase. A flat and upright of the abdomen revealed ascites. CT of the abdomen and pelvis also showed cirrhosis with a large amount of ascites. The patient was admitted with a GI consult. He underwent an ultrasound-guided paracentesis where 1.2 L of fluid were removed. Dr. Delacruz performed an EGD that showed large esophageal varices, hiatal hernia, portal gastropathy, gastric varices, antral ulcer, large duodenal ulcer, multiple smaller duodenal ulcers. He was continued on Protonix b.i.d. and Carafate 4 times a day, and added Nadol daily. His Nadol did have to be decreased secondary to bradycardia. Patient also tested positive for cocaine, and given his alcohol history, he was not considered a current candidate for liver transplant. Our evaluation and treatment for his hep B and hep C will be based on his remaining liver function tests as per Dr. Delacruz. The patient on 07/12/2016 underwent a colonoscopy for control of bleeding with biopsy. He was transfused with 2 units of FFP, 1 unit of platelets. He did have some chronic inflammation secondary to NSAID use and will be put on budesonide taper, and she will schedule him for outpatient colonoscopy as well as EGD, and he has been encouraged to avoid NSAIDs. He will return to Dr. Delacruz's clinic in 2 weeks after his discharge. Hemodynamically the patient has remained stable. He will be discharged to rehab. PHYSICAL EXAMINATION: Vital Signs: Temperature is 98.3 degrees, heart rate 56, respirations 20, blood pressure 131/69, O2 is 100% on room air. DISCHARGE DIET: Regular with Ensures. DISCHARGE MEDICATIONS: Will be as per Dr. Braun. Please see MAR. FOLLOWUP: The patient is being discharged to [facility]. He will need to follow up with Dr. Delacruz in 2 weeks as well as find a primary care physician. The patient can return to the ED for any worsening of symptoms. DISCHARGE TIME: Greater than 30 minutes. Dictated by BRITNI Luke for Nash Llanos MD cc: Nash Llanos MD
[2016-07-13] MEDS ORDERED: TUCKS PADS TOP PRN (14:23)
[2016-07-13] MEDS: CARAFATE PO SCH ×3 (14:40→22:07)
[2016-07-13] MEDS: NICODERM PATCH TD PRN (22:05)
[2016-07-14 06:36] LABS: MANUAL DIFF NEEDED? NO
[2016-07-14] MEDS ORDERED: PROTONIX PO SCH (07:00)
[2016-07-14 07:04] LABS: BASO% 0.3 % (0.0-0.8); EOS# 0.12 X1000 (0.0-0.7); EOS% 1.9 % (0.0-10.0); HEMATOCRIT 32.9 % (42.0-52.0); HEMOGLOBIN 11.4 g/dL (14.0-18.0); LYMPH# 1.42 X1000 (1.2-3.4); LYMPH% 22.5 % (20.5-51.1); MCH 34.3 PG (27-31); MCHC 34.7 g/dL (33-37); MCV 99.1 FL (81-99); MONO# 0.44 X1000 (0.11-0.59); MPV 11.5 FL (7.4-10.4); NEUT% 68.3 % (42.2-75.2); PLT 79 X1000 (130-400); RBC 3.32 XMIL (4.7-6.1)
[2016-07-14 07:17] LABS: AGAP 14; BUN 7 mg/dL (8-22); CALCIUM 8.5 mg/dL (8.8-10.2); CHLORIDE 105 mmol/L (98-107); COSMO 279; POTASSIUM 3.2 mmol/L (3.5-5.1); SODIUM 140 mmol/L (136-145); TCO2 21 mmol/L (25-35)
[2016-07-14 07:57] VITALS: BP 126/68
[2016-07-14] MEDS: CARAFATE PO SCH (09:57)
[2016-07-14] MEDS: CORGARD PO SCH (09:57)
[2016-07-14] MEDS: ENTOCORT EC PO SCH (09:57)
[2016-07-14] MEDS: SODIUM CHLORIDE 0.9% INJ SCH (09:57)
[2016-07-14] MEDS: MORPHINE IV PRN (09:57)
[2016-07-14] MEDS: PROTONIX IV SCH (09:57)
[2016-07-14] MEDS: ANUSOL-HC SUPP PR SCH (10:00)
[2016-07-14] MEDS ORDERED: KLOR-CON PO ONE (10:57)
--- NOTE | 2016-07-14 14:39 | PROGRESS NOTE ---
DATE: 07/14/2016 SUBJECTIVE: This patient states that he is feeling fine. No acute events overnight. OBJECTIVE: Vital Signs: Temperature 97.8 degrees, pulse 70, respiratory rate 20, blood pressure 126/68, O2 saturation 100% on room air. HEENT: Head normocephalic. No trauma. PERRLA. Neck: Supple. No JVD. No masses. Central trachea. Chest: Clear to auscultation. No wheezing. No rales. Abdomen: Soft, distended. Positive wave signs, not painful to palpation. Extremities: No edema. No clubbing. No cyanosis. Neurological: The patient is alert and oriented x3. No focal deficits. LABORATORY: WBC 6.3, hemoglobin 11.4, hematocrit 32.9, platelets 79,000. Sodium 140, potassium 3.2, chloride 105, bicarbonate 21, BUN 7, creatinine 0.8, glucose 128, calcium 8.5. ASSESSMENT AND PLAN: This patient is going to be discharged today, the discharge summary was done yesterday. DISCHARGE DIAGNOSES: 1. Liver cirrhosis with ascites followed by Dr. Delacruz. 2. Large esophageal varices, portal gastropathy, antral varices, large duodenal ulcer, multiple small duodenal ulcers. 3. Multiple colonic polyps with bleeding polyps. 4. Tobacco abuse. 5. Active hepatitis B and history of hepatitis C. 6. Intravenous drug abuse. 7. Alcohol abuse. 8. Physical deconditioning. This patient will be discharged to a rehab center, [facility]. He needs to follow up with Dr. Delacruz in 2 weeks as well as with his primary care physician. This patient is doing good today. cc: Nash Llanos MD
== END 2016-07-14 12:44 ==
LOC: ED 20:09 → SUATTDRO 07-05 00:23 → 4N 07-05 00:23 → 3N 07-10 17:01
PROVIDERS: ATTEND Internal Medicine
PROC: EN.HEAT (2016-07-12 15:14)

== ENCOUNTER 2016-08-07 13:33 | Inpatient (IN) ==
[2016-08-07 14:34] LABS: MANUAL DIFF NEEDED? NO
[2016-08-07 14:45] LABS: BASO% 0.5 % (0.0-0.8); EOS# 0.34 X1000 (0.0-0.7); EOS% 4.3 % (0.0-10.0); HEMATOCRIT 34.2 % (42.0-52.0); HEMOGLOBIN 11.9 g/dL (14.0-18.0); IMM GRAN# 0.02 X1000 (0.0-0.04); IMM GRAN% 0.3 % (0.0-0.5); LYMPH# 1.73 X1000 (1.2-3.4); MCH 35.1 PG (27-31); MCHC 34.8 g/dL (33-37); MCV 100.9 FL (81-99); MONO# 0.82 X1000 (0.11-0.59); MONO% 10.4 % (1.7-9.3); MPV 11.7 FL (7.4-10.4); NEUT% 62.5 % (42.2-75.2); RBC 3.39 XMIL (4.7-6.1)
[2016-08-07 14:46] LABS: PLT 33 X1000 (130-400)
[2016-08-07 14:50] LABS: INR 1.31; PTT 31.8 Seconds (22.0-36.0)
[2016-08-07 14:56] LABS: AGAP 9; ALBUMIN 2.8 g/dL (3.5-5.0); ALKALINE PHOSPHATASE 292 U/L (32-122); AMYLASE 34 U/L (20-200); BUN 7 mg/dL (8-22); CALCIUM 7.7 mg/dL (8.8-10.2); CHLORIDE 102 mmol/L (98-107); COSMO 272; GOT 84 U/L (10-34); GPT 88 U/L (10-44); LIPASE 40 U/L (13-60); SODIUM 137 mmol/L (136-145); TCO2 26 mmol/L (25-35); TOTAL PROTEIN 5.9 g/dL (6.3-8.3)
--- NOTE | 2016-08-07 15:09 | PROVIDER DOCUMENTATION ---
This chart was entered by Jose Mckee Scribe, acting as scribe for Jaylyn Shah MD. HPI-General Adult - General Chief Complaint: Edema Stated Complaint: ABD Pain Time Seen by Provider: 08/07/16 13:34 Source: patient Allergies/Adverse Reactions: Patient Allergies Allergy/AdvReac Type Severity Reaction Status Date / Time No Known Allergies Allergy Verified 08/07/16 13:54 Home Medications: Home Medication List Medication Instructions Recorded Confirmed Last Taken Type Budesonide E.r. [Entocort EC] 9 mg PO DAILY #120 capsule 07/13/16 08/07/1608/07 Rx Hydrocortisone Supp [Anusol-Hc 25 mg KS BID #8 supp 07/13/16 08/07/16 08/07/16 Rx Supp] Nadolol [Corgard] 20 mg PO DAILY #90 tablet 07/13/16 08/07/16 08/07/16 Rx Sucralfate [Carafate] 1 gm PO 4XDAY #120 tablet 07/13/16 08/07/16 08/07/16 Rx Tramadol HCl [Ultram] 50 mg PO Q8H PRN 08/02/16 08/07/16 08/07/16 History - History of Present Illness -Gen Adult Nature of Presenting Problems: 51 yo M presents to the ER and was sent by [facility] for abdominal pain and distended ab. PT has a hx of cirrhosis and had to have fluid drained. Pt has not other symptoms. Location of Pain/Injury: reports: abdomen Pain Radiation: reports: no radiation Quality of Pain: reports: aching Severity: reports: mild Onset/Duration: reports: just prior to arrival Timing: reports: still present Review of Systems - Adult - REVIEW OF SYSTEMS - ADULT Constitutional: denies: chills, fever Cardiovascular: denies: chest pain, palpitations Respiratory: denies: cough, shortness of breath Gastrointestinal: reports: see HPI, abdominal pain. denies: nausea, vomiting All Other Systems: Reviewed and Negative Past History - Adult - PAST MEDICAL HISTORY-ADULT Review of Records: reports: Old Records Reviewed, Nursing Assessment Review, Medications Reviewed, Social history reviewed & non-contributory. Major Childhood Illnesses: reports: denies history Cardiovascular: reports: HTN Gastrointestinal: reports: other (cirrhosis) - PRIOR SURGERIES/PROCEDURES Surgical/Procedure History: reports: none - IMMUNIZATION STATUS Childhood Immunizations: See Nurse Assessment Flu Vaccine: See Nurse Assessment Physical Exam-General - PHYSICAL EXAM-ADULT Initial Vital Signs Reviewed: Yes - CONSTITUTIONAL General Appearance: appears well, alert, no apparent distress - RESPIRATORY Respiratory: chest non-tender, lungs clear, normal breath sounds - CARDIOVASCULAR Cardiovascular: normal peripheral pulses, tachycardia - GASTROINTESTINAL (ABDOMEN) Abdominal Exam: normal bowel sounds, soft, distended, tenderness - MUSCULOSKELETAL Extremity: normal range of motion, non-tender, normal gait - SKIN Integumentary: normal color, normal turgor, warm/dry Progress - PLAN OF CARE/RESULTS Progress/Plan/Lab Results: Vital Signs - 8 hr 08/07/16 13:48 Temperature 98.5 F Pulse Rate 95 H Respiratory Rate 18 Blood Pressure 135/80 O2 Sat by Pulse Oximetry 100 Orders Category Date Time Status Saline Loc DIRECTED Care 08/07/16 13:44 Active NPO Diet 08/07/16 13:44 Active AMYLASE [CHEM] Stat Lab 08/07/16 13:44 Uncollected CBC WITH ELECTRONIC DIFF [HEME] Stat Lab 08/07/16 13:44 Uncollected COMPREHENSIVE METABOLIC PANEL [CHEM] Stat Lab 08/07/16 13:44 Uncollected LIPASE [CHEM] Stat Lab 08/07/16 13:44 Uncollected PROTIME WITH INR [COAG] Stat Lab 08/07/16 13:44 Uncollected PTT [COAG] Stat Lab 08/07/16 13:45 Uncollected URINALYSIS W/POSS RFLX CULT-1 [URINALYSIS] Stat Lab 08/07/16 13:44 Uncollected Result Diagrams: 08/07/16 14:14 08/07/16 14:14 - CONSULTS/PCP/HOSPITALIST Notification #1 *Consult/PCP/Hospitalist*: Dr Falcon Time Discussed: 15:06 Consult Disposition: Admit Departure - Departure Date of Disposition Decision: 08/07/16 Time of Disposition Decision: 15:05 DIAGNOSIS: Thrombocytopenia Ascites Qualifiers: Ascites type: other type Qualified Code(s): R18.8 - Other ascites Cirrhosis Qualifiers: Hepatic cirrhosis type: unspecified hepatic cirrhosis Ascites presence: with ascites Qualified Code(s): K74.60 - Unspecified cirrhosis of liver Disposition: ADMITTED INPATIENT 09 Certified Medical Emergency: Emergent Condition: Fair Referrals and Follow-Ups: Theresa Wells MD [Primary Care Provider] - - Critical Care Note This patient required my direct & personal management of CC.: No Comments: A 51 y/o M who presented with cirrhosis was recently has US guided paracentesis , this presentation has platelet count further dropped, no active bleeding, will hold off on platelet transfusion, admit for further evalaution and decision for US guided drainage of ascitic fluid on further evalaution This chart was documented by the indicated scribe, (Jose Mckee Scribe) and accurately reflects the services I performed and decisions made by me, Jaylyn Shah MD, as attested by the provider's signature.
[2016-08-07 16:05] LABS: URINE CULTURE NEEDED? NO; URINE SOURCE CLEAN CATCH
[2016-08-07 16:15] LABS: BILIRUBIN URINE NEGATIVE (NEGATIVE); BLOOD URINE NEGATIVE (NEGATIVE); COLOR YELLOW; GLUCOSE URINE NEGATIVE (NEGATIVE); LEUKOCYTES URINE NEGATIVE (NEGATIVE); NITRITE URINE NEGATIVE (NEGATIVE); PROTEIN URINE NEGATIVE (NEGATIVE); TURBIDITY URINE CLEAR (CLEAR); UROBILINOGEN URINE 6 mg/dL (NORMAL)
[2016-08-07 16:17] LABS: URINE MICRO REVIEW NEEDED? YES
[2016-08-07 16:20] LABS: UR EPITHELIAL CELLS <10 /HPF (<10); URINE BACTERIA NEGATIVE /HPF; URINE RBC <10 /HPF (<10); URINE WBC <10 /HPF (<10)
[2016-08-07 16:31] LABS: URINE CRYSTALS CA OXALATE PRESENT
--- NOTE | 2016-08-07 16:56 | HISTORY AND PHYSICAL ---
CHIEF COMPLAINT: Abdominal pain. HISTORY OF PRESENT ILLNESS: The patient is a 51-year-old white male with a history of cirrhosis of the liver secondary to hepatitis C and B who was recently admitted to the hospital and was sent over to [facility]. He did have paracentesis last , we removed just over 2 L. The patient stated after the paracentesis, his abdominal girth did not improve much. He continued to have pain. They did not seem to be able to get the pain under control at the rehab. At the same time, when they checked his platelets for repeat to tap, his platelets were low, so that were unable to do the tap, so they sent the patient here for further evaluation. His platelets were 33,000 and in the emergency room today when I saw the patient in the hallway, he still has abdominal girth, patient appears to be comfortable. Complained of having a lot of pain. The patient has been having constipation, has not been able to move his bowel because his abdominal girth is too much. He denies having any nausea or vomiting. The patient stated he has a good appetite. He has not been able to do much rehab at [facility]. No fever. No chills. No nausea, vomiting, or diarrhea. No chest pain. No shortness of breath. The patient stated that the last time he used any drugs was over a month ago prior to his last admission here. He denies having any alcohol. PAST MEDICAL HISTORY: 1. Hepatitis B, hepatitis C. 2. Cirrhosis of the liver. 3. Esophageal varices. PAST SURGICAL HISTORY: None. ALLERGIES: No known drug allergies. FAMILY HISTORY: Reviewed and noncontributory. SOCIAL HISTORY: The patient denies alcohol, but he endorsed using IV drugs and snorts drugs. The last time using was over a month and a half ago. He denies tobacco also. REVIEW OF SYSTEMS: 12 systems were reviewed and negative except for what was mentioned on HPI. HOME MEDICATIONS: 1. Budesonide 9 mg p.o. daily. 2. Anusol 25 mg p.r.n. per rectum b.i.d. for hemorrhoid. 3. Corgard 20 mg p.o. daily. 4. Carafate 1 g 4 times a day. 5. Tramadol 50 mg q.8 hours. PHYSICAL EXAMINATION: VITAL SIGNS: Blood pressure 135/80, pulse of 95, respiration 18, temperature 98.5 degrees, saturation 100% on room air. GENERAL APPEARANCE: Thin, white male, in moderate distress due to pain. HEENT: Anicteric sclerae. Clear conjunctivae. NECK: Supple. No JVD. No bruit. CARDIOVASCULAR: S1, S2. Normal rate and rhythm. No murmur, rubs, or gallops. PULMONARY: Clear to auscultation bilaterally. GI: Distended. Abdomen with fluid wave. Tender to palpation. LOWER EXTREMITY: About 3+ pitting edema bilaterally. LABORATORY: His white count 7.8, hemoglobin 11.9, hematocrit of 34.2, platelets of 33,000. Chemistry: Sodium 137, potassium 3, chloride 102, bicarb 26, BUN 7, creatinine 0.4, glucose of 111, AST 84, ALT 88, albumin 2.8, alkaline phosphatase of 292. ASSESSMENT AND PLAN: This is a 51-year-old white male with a history of cirrhosis of the liver secondary to hepatitis C and B, admitted to the hospital for increasing abdominal girth. 1. Ascites. Unable to tap the patient at this point because the platelets are too low, we will try to get his platelets above 50,000 before tapping him. We will get Gastroenterology involved. We may have to transfuse his platelets for thrombocytopenia prior to that tap. Coagulase is within normal limit and renal function is also normal. We will recheck his platelets tomorrow. Consider to tap him at the bedside if his platelets are improved. 2. Deep venous thrombosis prophylaxis. The patient is on Sequential Compression Devices. 3. Ascites and lower extremity edema probably secondary to poor p.o. intake with the liver disease. 4. Thrombocytopenia, probably secondary to liver disease. We will monitor. 1. Code Status: The patient is a full code.
[2016-08-07] MEDS ORDERED: ZOFRAN IV PRN (16:58)
[2016-08-07] MEDS ORDERED: MORPHINE IV PRN ×2 (16:58→17:58)
[2016-08-07] MEDS ORDERED: ALDACTONE PO ONE (16:58)
[2016-08-07] MEDS ORDERED: POTASSIUM CHLORIDE 40 MEQ/SWI 40 MEQ/100 ML IVPB IV ONE (16:58)
[2016-08-07] MEDS ORDERED: LASIX IV ONE (16:58)
[2016-08-07] MEDS ORDERED: OXY IR PO PRN ×2 (16:58→17:54)
[2016-08-07] MEDS ORDERED: ULTRAM PO PRN ×2 (16:58→17:58)
[2016-08-07] MEDS: CARAFATE PO SCH ×2 (20:47→23:58)
[2016-08-07] MEDS: ANUSOL-HC SUPP PR SCH (20:48)
[2016-08-07] MEDS ORDERED: NS 250 ML IV SCH (21:06)
[2016-08-08 06:30] LABS: MANUAL DIFF NEEDED? NO
[2016-08-08 06:45] LABS: BASO% 0.2 % (0.0-0.8); EOS# 0.06 X1000 (0.0-0.7); EOS% 0.6 % (0.0-10.0); HEMATOCRIT 36.2 % (42.0-52.0); HEMOGLOBIN 12.6 g/dL (14.0-18.0); IMM GRAN# 0.03 X1000 (0.0-0.04); IMM GRAN% 0.3 % (0.0-0.5); LYMPH# 1.77 X1000 (1.2-3.4); LYMPH% 18.7 % (20.5-51.1); MCH 35.1 PG (27-31); MCHC 34.8 g/dL (33-37); MCV 100.8 FL (81-99); MONO# 0.89 X1000 (0.11-0.59); MONO% 9.4 % (1.7-9.3); MPV 10.9 FL (7.4-10.4); NEUT% 70.8 % (42.2-75.2); PLT 63 X1000 (130-400); RBC 3.59 XMIL (4.7-6.1)
[2016-08-08 06:52] LABS: INR 1.31
[2016-08-08] MEDS ORDERED: PRILOSEC PO SCH (07:00)
[2016-08-08 07:18] LABS: AGAP 10; ALBUMIN 2.9 g/dL (3.5-5.0); ALKALINE PHOSPHATASE 257 U/L (32-122); BUN 10 mg/dL (8-22); CALCIUM 8.1 mg/dL (8.8-10.2); CHLORIDE 104 mmol/L (98-107); COSMO 276; GOT 84 U/L (10-34); GPT 93 U/L (10-44); POTASSIUM 3.6 mmol/L (3.5-5.1); SODIUM 139 mmol/L (136-145); TCO2 25 mmol/L (25-35); TOTAL BILIRUBIN 1.39 mg/dL (0.20-1.00); TOTAL PROTEIN 6.2 g/dL (6.3-8.3)
[2016-08-08] MEDS ORDERED: CORGARD PO SCH (09:00)
[2016-08-08] MEDS ORDERED: NICODERM PATCH TD SCH (09:00)
[2016-08-08] MEDS ORDERED: ENTOCORT EC PO SCH (09:00)
[2016-08-08] MEDS: CARAFATE PO SCH (10:30)
--- NOTE | 2016-08-08 10:46 | Diag Imaging Result Doc PS360 ---
US PARACENTESIS - 08/08/2016 INDICATION: increase abd girth COMPARISON: 08/02/2016 FINDINGS: The risks and benefits of the procedure were discussed with the patient. All questions were answered. Written and verbal consent was obtained. Ultrasound scanning demonstrated ascites. Overlying skin was prepped and draped in sterile fashion. Local anesthesia was achieved with injection of 10 cc 1% lidocaine. The paracentesis catheter was advanced until the return of ascites fluid. 3.6 L of venus fluid was aspirated. The catheter was withdrawn intact. There were no known complications. IMPRESSION: Technically successful ultrasound-guided paracentesis with no known complications. Electronically signed by Fredrick Sanabria 08/08/2016 10:43 AM
[2016-08-08 11:05] LABS: DIFF NEEDED? YES; WBC BF 218 /cumm
[2016-08-08] MEDS: ANUSOL-HC SUPP PR SCH (11:28)
[2016-08-08 11:59] LABS: MONOS 90 %; POLYS 10 %
[2016-08-08 12:04] LABS: TOTAL PROT BODY FLUID 0.4 g/dL
--- NOTE | 2016-08-08 12:15 | DISCHARGE SUMMARY ---
ADMISSION DATE: 08/07/2016 DISCHARGE DATE: 08/08/2016 CONSULTATIONS: None. PERTINENT PROCEDURES: Ultrasound-guided paracentesis where they removed 3.6 L of venus fluid without complication. DISCHARGE DIAGNOSES: 1. Ascites status post ultrasound-guided thoracentesis where they removed 3.6 L of venus fluid without complication. Patient is ready to return back to rehabilitation. 2. Lower extremity edema along with ascites secondary to poor p.o. intake and liver disease. 3. Thrombocytopenia secondary to liver disease. 4. Hepatitis B and C, aware. 5. Esophageal varices, aware. HOSPITAL COURSE: Mr. Arroyo is a 51-year-old male with a history of cirrhosis of the liver secondary to hepatitis C and B, recently admitted to the hospital and was sent to [facility]hab. He had a paracentesis last where they removed 2 L of fluid. The patient stated after his paracentesis his abdominal girth did not improve much. He continued to have pain. They were not able to get his pain under control at rehab. They were going to tap him however his platelets were low, so they sent him to the ED for evaluation where his platelets were 33,000 in the ED. The patient also complained of constipation. He has not been able to have a bowel movement because of his abdominal girth although he did have a good appetite. The patient was admitted to the hospital. He underwent an ultrasound-guided thoracentesis where they removed 3.6 L of venus fluid. He was also given platelets prior to his thoracentesis for his thrombocytopenia. His coagulase was within normal limits. Renal function was also normal. The patient is appropriate to go back to [facility] today. VITAL SIGNS: Temperature is 98.2 degrees, heart rate 84, respirations 22, blood pressure 144/87, O2 is 98% on room air. DISCHARGE MEDICATIONS: Per Dr. Argueta. DISCHARGE DIET: Regular. DISPOSITION: Patient is being discharged back to [facility]hab to continue with his rehabilitation. FOLLOWUP: Patient can return to the ED for any worsening of symptoms. Time the stents are patent discharge. DISCHARGE TIME: Thirty minutes. Dictated by BRITNI Luke for Efe Argueta MD Addendum: I personally evaluated and examined the patient in conjunction to the GROUP PROGRAM MANAGER and agreed with her disposition. See my PN for exam MTDD
--- NOTE | 2016-08-08 13:05 | PROGRESS NOTE ---
DATE: 08/08/2016 SUBJECTIVE: The patient is feeling well. He went downstairs and got a drink after he was done with paracentesis. No pain. He is eating his lunch. Denies having any fever or chills. Denied having any nausea, vomiting, or diarrhea. OBJECTIVE: Vital signs: Blood pressure 144/87, pulse of 84, respirations 22, temperature of 98.2 degrees, satting 98% on room air. General appearance: Thin, white male in no acute distress. HEENT: Anicteric sclerae. Clear conjunctivae. Neck: Supple. No JVD. No bruit. Cardiovascular: S1, S2. Normal rate and rhythm. No murmur, rubs, or gallops. Pulmonary: Clear to auscultation bilaterally. GI: Soft, nontender, nondistended. Normoactive bowel sounds. Musculoskeletal: No clubbing, cyanosis, or edema. LABORATORY: His white count was 9.48, hemoglobin 12.6, hematocrit 32.2, platelets of 463. Chemistry: Sodium 139, potassium 3.6, chloride 104, bicarbonate 25, BUN 10, creatinine 0.4, glucose of 85,. ASSESSMENT/PLAN: A 51-year-old with hepatitis C and hepatitis B presented with: 1. Ascites status post paracentesis to remove 3.4 liters of venus-colored fluid. The patient tolerated the procedure well and doing well. Blood pressure is stable. We will discharge the patient back to rehabilitation today.
[2016-08-08 14:03] VITALS: BP 136/85
== END 2016-08-08 14:23 ==
LOC: SUPCPDRO → ED 13:33 → 3N 19:52
PROVIDERS: ATTEND Internal Medicine

== ENCOUNTER 2016-08-20 12:12 | Inpatient (IN) ==
[2016-08-20 12:50] LABS: MANUAL DIFF NEEDED? NO
--- NOTE | 2016-08-20 12:51 | PROVIDER DOCUMENTATION ---
HPI-Abdominal Pain/GI Problem - General Chief Complaint: Abdominal Pain Stated Complaint: abd pain Time Seen by Provider: 08/20/16 12:15 Source: patient Allergies/Adverse Reactions: Patient Allergies Allergy/AdvReac Type Severity Reaction Status Date / Time No Known Allergies Allergy Verified 08/20/16 12:17 Home Medications: Home Medication List Medication Instructions Recorded Confirmed Last Taken Type Sucralfate [Carafate] 1 gm PO 4XDAY #120 tablet 07/13/16 08/19/16 08/18/16 Rx Tramadol HCl [Ultram] 50 mg PO Q8H PRN 08/02/16 08/19/16 08/18/16 History Budesonide E.r. [Entocort EC] 9 mg PO QAM 08/12/16 08/19/16 08/18/16 History Nadolol [Corgard] 20 mg PO QAM 08/12/16 08/19/16 08/18/16 History - History of Present Illness-ABD Nature of Presenting Problems: 51 y/o WM with a PMHx of Cirrhosis of the liver that presents to the ED with abdominal pain. States that he receives therapeutic paracentesis for this issue which was conducted approximately one week ago. Abdominal Pain Onset Location: reports: generalized abdomen Pain Radiation: reports: no radiation Quality of Pain: reports: aching Severity in ED: reports: severe Onset/Duration: reports: other (chronic) Timing: reports: still present Activities at Onset: reports: none Exposure to sick contacts?: No Modifying Factors: improves with: nothing Associated Symptoms: reports: loss of appetite, shortness of breath, weakness Dark Stools Present?: reports: none noticed Rectal Bleeding: reports: none Rectal Pain: reports: none Emesis Description: reports: none Bruising or Bleeding Gums?: No Similar Symptoms Previously?: Yes Recently seen or treated by another doctor?: Yes (Dr. Delacruz) Review of Systems - Adult - REVIEW OF SYSTEMS - ADULT Constitutional: reports: no symptoms reported Eyes: reports: no symptoms reported Ears, Nose, Mouth & Throat: reports: no symptoms reported Cardiovascular: reports: no symptoms reported Respiratory: reports: no symptoms reported Gastrointestinal: reports: abdominal pain Genitourinary: reports: no symptoms reported Musculoskeletal: reports: no symptoms reported Integumentary: reports: no symptoms reported Neurological: reports: no symptoms reported Psychiatric: reports: no symptoms reported Endocrine: reports: no symptoms reported Hematologic/Lymphatic: reports: no symptoms reported Allergic/Immunologic: reports: no symptoms reported Past History - Adult - PAST MEDICAL HISTORY-ADULT Review of Records: reports: Old Records Reviewed, Nursing Assessment Review, Medications Reviewed Major Childhood Illnesses: reports: denies history Cardiovascular: reports: HTN Respiratory: reports: denies history Gastrointestinal: reports: other (cirrhosis) Obstetrical/Gynecological: reports: denies history Genitourinary: reports: denies history Musculoskeletal: reports: denies history Neurological: reports: denies history Endocrine/Immune: reports: denies history Other Conditions: reports: denies history - PRIOR SURGERIES/PROCEDURES Surgical/Procedure History: reports: none - IMMUNIZATION STATUS Childhood Immunizations: See Nurse Assessment Flu Vaccine: See Nurse Assessment - FAMILY HISTORY Family History: reviewed, not pertinent - SOCIAL HISTORY Smoking: cigarettes, less than 1 pack/day Substance Use: denies Living Situation: alone Physical Exam-General - PHYSICAL EXAM-ADULT Initial Vital Signs Reviewed: Yes - CONSTITUTIONAL General Appearance: alert, no apparent distress. negative: lethargic, slow to respond, obtunded, combative - EYES Eyes: PERRL/EOMI, pink conjunctivae. negative: sclera injected, scleral icterus - HEAD, EARS, NOSE, MOUTH & THROAT HENMT: normocephalic/atraumatic, moist mucous membranes. negative: pharyngeal erythema, tonsillar exudate - NECK Neck: non-tender, full range of motion. negative: C-spine tenderness - RESPIRATORY Respiratory: chest non-tender, lungs clear, normal breath sounds. negative: crackles, rales, rhonchi, stridor, wheezing - CARDIOVASCULAR Cardiovascular: normal peripheral pulses, regular rate, rhythm, no murmur - GASTROINTESTINAL (ABDOMEN) Abdominal Exam: distended, tenderness. negative: guarding, rigid, rebound - LYMPHATIC Lymphatic: no adenopathy - MUSCULOSKELETAL Back Exam: normal inspection, no CVA tenderness, no vertebral tenderness. negative: muscle spasm, swelling Extremity: normal range of motion, non-tender. negative: swelling, tenderness - SKIN Integumentary: normal color, normal turgor, warm/dry. negative: swelling, tenderness - NEUROLOGIC Neurologic: hand driller II-XII nml as tested, grossly normal. negative: motor weakness - PSYCHIATRIC Psych/Mental Status: normal mood/affect, normal thought content, normal thought process, oriented x 3 Progress - PLAN OF CARE/RESULTS Progress/Plan/Lab Results: Vital Signs - 8 hr 08/20/16 12:15 Temperature 98.2 F Pulse Rate 90 Respiratory Rate 24 Blood Pressure 142/86 O2 Sat by Pulse Oximetry 96 Orders Category Date Time Status Saline Loc DIRECTED Care 08/20/16 12:17 Active NPO Diet 08/20/16 12:17 Active flat [ABDOMEN FLAT/UPRIGHT] [RAD] Stat Exams 08/20/16 12:17 Ordered AMYLASE [CHEM] Stat Lab 08/20/16 12:44 Ordered CBC WITH ELECTRONIC DIFF [HEME] Stat Lab 08/20/16 12:44 Ordered COMPREHENSIVE METABOLIC PANEL [CHEM] Stat Lab 08/20/16 12:44 Ordered LIPASE [CHEM] Stat Lab 08/20/16 12:44 Ordered URINALYSIS W/POSS RFLX CULT-1 [URINALYSIS] Stat Lab 08/20/16 12:17 Uncollected Result Diagrams: 08/20/16 12:37 08/20/16 12:37 - XRAY 1 XRAY Study: Abdomen Impression: Abnormal (constipation) - CONSULTS/PCP/HOSPITALIST Notification #1 *Consult/PCP/Hospitalist*: Jose Thornton ([facility]) Time Discussed: 14:14 Consult Disposition: Admit (Dr. Abreu) Departure - Departure Date of Disposition Decision: 08/20/16 Time of Disposition Decision: 14:13 DIAGNOSIS: Cirrhosis Qualifiers: Hepatic cirrhosis type: unspecified hepatic cirrhosis Ascites presence: with ascites Qualified Code(s): K74.60 - Unspecified cirrhosis of liver Ascites Qualifiers: Ascites type: other type Qualified Code(s): R18.8 - Other ascites Disposition: ADMITTED INPATIENT 09 Certified Medical Emergency: Emergent Condition: Good Referrals and Follow-Ups: None,PCP [Primary Care Provider] - - Critical Care Note This patient required my direct & personal management of CC.: No
[2016-08-20 13:08] LABS: BASO% 0.2 % (0.0-0.8); EOS# 0.15 X1000 (0.0-0.7); EOS% 1.4 % (0.0-10.0); HEMATOCRIT 36.8 % (42.0-52.0); IMM GRAN# 0.03 X1000 (0.0-0.04); IMM GRAN% 0.3 % (0.0-0.5); LYMPH# 1.81 X1000 (1.2-3.4); LYMPH% 16.3 % (20.5-51.1); MCH 36.3 PG (27-31); MCHC 35.3 g/dL (33-37); MCV 102.8 FL (81-99); MONO# 1.16 X1000 (0.11-0.59); MONO% 10.4 % (1.7-9.3); MPV 12.1 FL (7.4-10.4); NEUT% 71.4 % (42.2-75.2); PLT 40 X1000 (130-400); RBC 3.58 XMIL (4.7-6.1)
[2016-08-20 13:09] LABS: AGAP 7; ALBUMIN 2.6 g/dL (3.5-5.0); ALKALINE PHOSPHATASE 208 U/L (32-122); AMYLASE 81 U/L (20-200); BUN 12 mg/dL (8-22); CALCIUM 7.9 mg/dL (8.8-10.2); CHLORIDE 106 mmol/L (98-107); COSMO 277; GOT 74 U/L (10-34); GPT 83 U/L (10-44); LIPASE 163 U/L (13-60); SODIUM 139 mmol/L (136-145); TCO2 26 mmol/L (25-35); TOTAL BILIRUBIN 1.05 mg/dL (0.20-1.00); TOTAL PROTEIN 6.4 g/dL (6.3-8.3)
--- NOTE | 2016-08-20 13:21 | Diag Imaging Result Doc PS360 ---
EXAM: ABDOMEN FLAT/UPRIGHT HISTORY: abdominal pain TECHNIQUE: Two views COMPARISON: 08/12/2016 FINDINGS: [There is stool that remains throughout the colon although the bowel loops are not distended. No organomegaly. No foreign body. Long-standing arthritic changes to the right hip IMPRESSION: Constipation. Electronically signed by Reynold Pablo 08/20/2016 1:18 PM
--- NOTE | 2016-08-20 15:06 | Diag Imaging Result Doc PS360 ---
EXAM: CHEST-PORTABLE INDICATION: dyspnea TECHNIQUE: One view COMPARISON: 08/12/2016 FINDINGS: Inspiration is suboptimal. There is suggestion of mild atelectasis at the left lung base. The lungs are grossly clear, otherwise. There is no discrete pleural fluid collection or pneumothorax. The cardiomediastinal silhouette and central vasculature are grossly unremarkable. IMPRESSION: Low lung volumes and suggestion of mild left basilar atelectasis. No definite acute pathology, otherwise. Electronically signed by Fredrick Sanabria 08/20/2016 3:04 PM
[2016-08-20 17:06] LABS: MANUAL DIFF NEEDED? NO
[2016-08-20 17:18] LABS: INR 1.28; PROTIME 13.6 Seconds (9.2-11.7)
[2016-08-20 17:24] LABS: BASO% 0.3 % (0.0-0.8); EOS# 0.17 X1000 (0.0-0.7); EOS% 1.7 % (0.0-10.0); HEMATOCRIT 39.2 % (42.0-52.0); HEMOGLOBIN 13.7 g/dL (14.0-18.0); IMM GRAN# 0.03 X1000 (0.0-0.04); IMM GRAN% 0.3 % (0.0-0.5); LYMPH# 2.01 X1000 (1.2-3.4); LYMPH% 19.8 % (20.5-51.1); MCH 35.9 PG (27-31); MCHC 34.9 g/dL (33-37); MCV 102.6 FL (81-99); MONO# 0.96 X1000 (0.11-0.59); MONO% 9.4 % (1.7-9.3); NEUT% 68.5 % (42.2-75.2); PLT 53 X1000 (130-400); RBC 3.82 XMIL (4.7-6.1)
[2016-08-20] MEDS: TORADOL IV PRN (17:25)
[2016-08-20 17:31] LABS: AGAP 10; ALBUMIN 2.8 g/dL (3.5-5.0); ALKALINE PHOSPHATASE 214 U/L (32-122); BUN 12 mg/dL (8-22); CHLORIDE 104 mmol/L (98-107); COSMO 275; GOT 82 U/L (10-34); GPT 89 U/L (10-44); POTASSIUM 3.3 mmol/L (3.5-5.1); SODIUM 138 mmol/L (136-145); TCO2 24 mmol/L (25-35); TOTAL BILIRUBIN 1.38 mg/dL (0.20-1.00); TOTAL PROTEIN 6.7 g/dL (6.3-8.3)
--- NOTE | 2016-08-20 17:58 | HISTORY AND PHYSICAL ---
CHIEF COMPLAINT: Abdominal pain. HISTORY OF PRESENT ILLNESS: Mr. Arroyo is a 51-year-old male known to our service with a history of hepatitis B and C with cirrhosis, who receives paracenteses once a week. His last paracentesis ultrasound was done on 08/15/2016. Today he comes in from [facility] with abdominal pain and distention. Symptoms have been going on acutely over the past few days. He denies any fevers or chills. He has no shortness of breath or cough. He does report some diarrhea with occasional hematochezia but no melena. He denies any emesis or hematemesis. The pain is diffuse in the abdomen and it is constant. Made worse with moving. Made better with rest. When the patient got to the ER labs and diagnostics were done. He was noted to have a mildly elevated white count, anemia with macrocytosis, and elevated liver function tests. Abdominal x-ray did not show anything acute, constipation was noted. We are now going to admit the patient for further treatment and evaluation. PAST MEDICAL HISTORY: 1. Hepatitis B. 2. Hepatitis C. 3. History of polysubstance dependence. 4. Cirrhosis of the liver. 5. Chronic anemia. 6. Esophageal varices. 7. NSAID enteropathy. 8. Bleeding AVM status post colonoscopy. 9. Gastric and duodenal ulcers. PAST SURGICAL HISTORY: None. SOCIAL HISTORY: Patient has a history of polysubstance dependence but denies any current alcohol, drug, or tobacco use. He currently resides at [facility]. FAMILY HISTORY: Noncontributory. REVIEW OF SYSTEMS: Fourteen-point review of systems obtained and found to be negative with the exception of the HPI. HOME MEDICATIONS: Currently being compiled. ALLERGIES: No known drug allergies. PHYSICAL EXAMINATION: VITAL SIGNS: Blood pressure is 142/86, heart rate 90, respiratory rate 24, O2 saturation 96% on room air, temperature is 98.2 degrees. GENERAL: This is a chronically-ill and disheveled-appearing, 51-year-old male, lying in hospital bed in no acute distress. NEUROLOGIC: The patient is a bit sleepy. He does open eyes to verbal stimulus. He follows commands without focal deficits. HEENT: Head is atraumatic and normocephalic. Pupils are equal, round, reactive to light. Oral mucosa is moist. Trachea is midline. No JVD. CHEST: Some rhonchi noted bilaterally. Chest rises symmetrically. No increased work of breathing. CV: Regular. S1, S2 is noted. GI: Distended and diffusely tender to palpation. Bowel sounds are hypoactive. EXTREMITIES: There is 2+ pitting edema bilaterally with pulses that are diminished but palpable. DIAGNOSTIC DATA: WBC 11.11, hemoglobin 13, hematocrit 36.8, platelet count is 40,000. Sodium 139, potassium 4, chloride 106, CO2 26, anion gap 7, BUN 12, creatinine 0.5, glucose 97, calcium 7.9, bilirubin 1.05, AST 74, ALT 83, alkaline phosphatase 208, albumin 2.6, lipase 163. Abdomen x- ray shows constipation, nothing acute. ASSESSMENT AND PLAN: 1. Abdominal pain: Likely secondary to his known cirrhosis and ascites. We will go ahead and obtain blood cultures and start the patient on Rocephin 2 g for SBP prophylaxis. We will also consult Dr. Delacruz. If paracentesis is done we will order appropriate laboratory data. Obviously will withhold any hepatotoxic medications. 2. Anemia and thrombocytopenia: Thrombocytopenia is likely secondary to his liver disease. For anemia we will go ahead and check full iron studies. Will monitor his blood counts closely and transfuse if necessary. 3. Esophageal varices: The patient denies any hematemesis or hemoptysis. He is on nadolol at home which we will resume once this has been confirmed by the nursing staff. He does have some occasional bright red blood per rectum but has had an endoscopy earlier this month which did show some hemorrhoids. Will put him on oral Protonix and continue his Carafate once it has been compiled. 4. History of polysubstance dependence: Patient denies any drug use at this time. Will continue to monitor this and discuss with him the importance of continued cessation. 5. Deep vein thrombosis prophylaxis with SCDs given his thrombocytopenia and propensity for bleeding. Further recommendations to follow. Dictated by BRITNI Walsh for Mark Abreu MD cc: BRITNI Walsh MD [facility]
[2016-08-20] MEDS: ROCEPHIN 2 GM/NS 2 GM/50 ML IVPB IV SCH (18:18)
[2016-08-20 20:31] LABS: URINE CULTURE NEEDED? NO; URINE SOURCE CLEAN CATCH
[2016-08-20 20:34] LABS: BILIRUBIN URINE NEGATIVE (NEGATIVE); BLOOD URINE SMALL (NEGATIVE); COLOR YELLOW; GLUCOSE URINE NEGATIVE (NEGATIVE); LEUKOCYTES URINE NEGATIVE (NEGATIVE); NITRITE URINE NEGATIVE (NEGATIVE); PROTEIN URINE 30 mg/dL (NEGATIVE); SP GRAVITY URINE 1.032; TURBIDITY URINE HAZY (CLEAR); URINE MICRO REVIEW NEEDED? YES; UROBILINOGEN URINE 6 mg/dL (NORMAL)
[2016-08-20 20:40] LABS: UR EPITHELIAL CELLS <10 /HPF (<10); URINE BACTERIA NEGATIVE /HPF; URINE RBC <10 /HPF (<10); URINE WBC <10 /HPF (<10)
[2016-08-20 20:51] LABS: URINE CRYSTALS CA OXALATE PRESENT
[2016-08-21] MEDS ORDERED: PREPARATION H OINT TOP PRN (04:28)
[2016-08-21 06:45] LABS: HEMATOCRIT 37.2 % (42.0-52.0); MCHC 34.9 g/dL (33-37); MPV 11.7 FL (7.4-10.4); RBC 3.61 XMIL (4.7-6.1)
[2016-08-21] MEDS: TORADOL IV PRN ×3 (06:46→23:42)
[2016-08-21 06:53] LABS: AGAP 10; ALBUMIN 2.7 g/dL (3.5-5.0); ALKALINE PHOSPHATASE 233 U/L (32-122); BUN 14 mg/dL (8-22); CALCIUM 7.9 mg/dL (8.8-10.2); CHLORIDE 106 mmol/L (98-107); COSMO 279; GOT 78 U/L (10-34); GPT 81 U/L (10-44); HDL 57 mg/dL (35-55); IRON SATURATION 26 %; LDL 80 mg/dL; POTASSIUM 3.4 mmol/L (3.5-5.1); SODIUM 140 mmol/L (136-145); TCO2 24 mmol/L (25-35); TIBC 244 ug/dL; TOTAL BILIRUBIN 0.93 mg/dL (0.20-1.00); TOTAL IRON 63 ug/dL (53-167); TOTAL PROTEIN 6.3 g/dL (6.3-8.3); TRIGLYCERIDES 44 mg/dL (39-160); UNBOUND IRON 181 ug/dL (112-346); VLDL 9 mg/dL
[2016-08-21] MEDS ORDERED: PNEUMOVAX 23 IM ONE (08:15)
[2016-08-21] MEDS ORDERED: KLOR-CON PO ONE (08:21)
--- NOTE | 2016-08-21 09:37 | Diag Imaging Result Doc PS360 ---
US PELVIC MALE (COMPLETE) - 08/21/2016 INDICATION: Cirrhosis, needs to be drained TECHNIQUE: COMPARISON: Several prior exams FINDINGS: There is trace ascites. The largest pocket measures about 3 cm. IMPRESSION: Trace ascites, probably less than 1 L. Paracentesis was deferred. Electronically signed by Werner Irving 08/21/2016 9:35 AM
[2016-08-21] MEDS: LASIX PO SCH (09:45)
[2016-08-21] MEDS: ALDACTONE PO SCH (09:45)
[2016-08-21] MEDS ORDERED: LACTULOSE PO ONE (09:55)
[2016-08-21] MEDS ORDERED: LACTULOSE PO SCH (13:00)
--- NOTE | 2016-08-21 14:45 | PROGRESS NOTE ---
DATE: 08/21/2016 SUBJECTIVE: This patient is complaining of abdominal pain and scrotal swelling. He denies nausea, vomiting. He has been having bowel movement, so far today 4. He went today for a paracentesis, but this hand polisher evaluated him with the ultrasound and he found just trace ascites, probably less than 1 L and the paracentesis was deferred. OBJECTIVE: Vital Signs: Temperature 98.3 degrees, pulse 76, respiratory rate 16, blood pressure 131/68, oxygen saturation 100% on room air. HEENT: Head normocephalic. No trauma. PERRLA. Neck: Supple. No JVD. No masses. Central trachea. Chest: Decreased breath sounds at the bases with mild rales at the level of the right lower lung. Abdomen: Soft. Tense, generalized painful to palpation. Distended. Decreased bowel sounds. Extremities: 2+ pitting edema bilaterally. No clubbing. No cyanosis. LABORATORY: WBC 8.9, hemoglobin 13. Hematocrit 37.2, platelets 46,000. Sodium 140, potassium 3.4, chloride 106, bicarbonate 24, BUN 14, creatinine 0.5. Calcium 7.9, glucose 88. Albumin 2.7. ASSESSMENT AND PLAN: 1. Abdominal pain. This patient has a history of liver cirrhosis and ascites, today was evaluated by the radiologist and he has trace ascites, so no paracentesis was performed. We started this patient on Rocephin in case of spontaneous bacterial peritonitis, and Gastroenterology Department is on board. We will continue to follow their recommendations. 2. Anemia and thrombocytopenia, thrombocytopenia is likely secondary to liver cirrhosis, will monitor the hemoglobin and hematocrit. 3. Esophageal varices. This patient denies any hematemesis or hemoptysis. We will continue with PPIs and Carafate. 4. History of polysubstance dependence. This patient denies any kind of drug use at this time. We will monitor. 5. Deep vein thrombosis prophylaxis with SCDs. 6. Hypokalemia. I will replace the potassium today. cc: Nash Llanos MD
[2016-08-21] MEDS: ROCEPHIN 2 GM/NS 2 GM/50 ML IVPB IV SCH (14:47)
[2016-08-21] MEDS: LACTULOSE PO SCH (17:35)
[2016-08-21] MEDS: CORGARD PO SCH ×2 (21:51→21:52)
--- NOTE | 2016-08-22 02:07 | CONSULTATION ---
DATE OF CONSULTATION: 08/20/2016 REFERRING PHYSICIAN: Dr. Mark Abreu M.D. INDICATION FOR CONSULTATION: 1. Abdominal pain. 2. Refractory ascites. HISTORY OF PRESENT ILLNESS: The patient is a 51-year-old white male who is well -known to our service. He initially presented in June 2016 with a 3-4 week history of abdominal swelling, abdominal pain, and loose stools. His CT scan in the emergency room on 07/05 was remarkable for severe cirrhosis, large ascites, and a probable ileus. During that admission, he received supportive care. He underwent endoscopic evaluation on 07/11/2015. He was found to have large esophageal varices. In addition, he was found to have gastric varices. There was a hiatal hernia, portal gastropathy, erosive gastritis, and a large antral ulcer. In addition, there were more than 6 duodenal ulcers that ranged in size from 5 to 6 mm. He was placed on Carafate and Protonix during that admission. From a liver standpoint, he reports a history of polysubstance abuse, including alcohol and other narcotics. His exam was positive for cirrhosis. His hepatitis A serology was negative. His lab tests were remarkable for chronic active hepatitis B. He also shows evidence that he has had hepatitis C in the past, but the detection level of the hepatitis C RNA was read as undetectable on PCR. His exam was significant for abdominal ascites. He underwent a paracentesis, which showed ascites from uncomplicated alcohol liver disease. Because of persistent abdominal pain, the patient underwent a colonoscopy. He was found to have multiple colon polyps. He was also found to have colonic ulcers, diverticulosis, internal hemorrhoids, as well as external hemorrhoids. His findings on colonoscopy, as well as upper endoscopy, were consistent with NSAID enteropathy. The patient was using Goody's powder on a daily basis at home. He was subsequently discharged to rehab at [facility] for recovery due to deconditioning and failure to thrive. He has since returned to the emergency room multiple times, and undergone repeat paracentesis on a weekly basis. Unfortunately, recommendations to place him on Lasix and spironolactone were not done. He was placed on Carafate and Protonix for his ulcer disease. He was placed on nadolol for his large esophageal varices. He is now readmitted with severe abdominal pain and swelling, as well as scrotal edema. We are asked to participate in his care. PAST MEDICAL HISTORY: 1. Chronic active hepatitis B. 2. History of hepatitis C, now resolved. 3. Polysubstance abuse. 4. Iron deficiency anemia. 5. Anemia of chronic disease. 6. NSAID enteropathy. 7. Colonic AVMs, status post cautery. 8. Esophageal and gastric varices. 9. Alcoholic cirrhosis. 10. Colonic ulcers, likely secondary to NSAID enteropathy, as noted above. 11. Multiple colon polyps that were adenomatous. 12. Chronic abdominal pain. PAST SURGICAL HISTORY: None. SOCIAL HISTORY: The patient has a history of polysubstance abuse. He states that he stopped drinking in 06/2015, following his initial admission to the hospital. Remarkable in that the patient previously smoked a half a pack of cigarettes per day from age 15 until its admission on 07/05/2016. He was using a minimum of 1-2 BC powders per day for years. He stopped using substances after his admission 07/05. He previously used methamphetamines and cocaine in the past. He reports snorting all of his medications, or taking them orally. He denies IV drug use. He previously drank a 6 pack of beer per day on a near daily basis. He is disabled and resides at [facility]. REVIEW OF SYSTEMS: Remarkable for abdominal distention, bloating, scrotal edema , and pain. The patient states that he would also like to be considered for a liver transplant, even though he has a history of substance abuse and alcohol abuse. He currently resides at [facility]. He has a brother who is somewhat involved in his care. FAMILY HISTORY: Minimally contributory. The patient has had almost no contact with his biological family, except for mild contact with his brother. MEDICATION ALLERGIES: None. HOME MEDICATIONS: 1. Carafate. 2. Corgard. 3. Entocort. 4. Ultram. 5. Lorazepam. 6. (Please note that the patient was also prescribed omeprazole, lactulose, multivitamin, thiamine, and folate last admission). PHYSICAL EXAMINATION: General: He is in no acute distress. Vital Signs: His blood pressure is 144/87, pulse 93, respiration 20, temperature of 98.9 degrees. HEENT: Negative for jaundice. His oropharyngeal mucosal membranes are dry. His conjunctivae are pink. Pulmonary: He has decreased breath sounds in the bases bilaterally. His breath sounds are clear anteriorly. Cardiovascular: He has regular rate and rhythm, with no gallops or rubs. His abdominal exam reveals abdominal distention, suggestive of [id number] ascites. He also has new scrotal edema. He has bilateral pedal edema, which is 2 to 3+. Neurologic: He is easily confused, which is an interval change from his previous admission. He is only somewhat interactive, which is also an interval change. He stated that he was tired, and did not comply with the neurologic exam. OBJECTIVE DATA: Reveals a hemoglobin of 13.0 with hematocrit of 36.8, and a white count of 11.11. He has 40,000 platelets. His MCV is 102.8. His MCH is 36.3. Sodium is 138, potassium 3.3, chloride 104, CO2 24, BUN 12, creatinine 0.5, with a glucose of 88. Calcium is 8.0, total bilirubin 1.38, AST 82, ALT 89, alkaline phosphatase 214, total protein 6.7, albumin 2.8. IMPRESSION: 1. Ascites. 2. Known esophageal and gastric varices. 3. Known alcoholic cirrhosis. 4. Chronic active hepatitis B. 5. Multiple adenomatous colon polyps. 6. Colonic arteriovenous malformations, status post cautery last admission. 7. Colonic ulcers. 8. Hepatitis C. 9. Polysubstance abuse. 10. Chronic abdominal pain. 11. Iron-deficiency anemia. 12. Gastric ulcers. 13. Duodenal ulcers. 14. History of NSAID use last admission. RECOMMENDATION: 1. The patient is currently receiving Prilosec 40 mg 1 p.o. daily. I would continue this dose. 2. We may need to reinstitute Carafate, as he has not completed a 12-week course of Carafate. This may also contribute to his abdominal pain. On previous endoscopy, he had multiple large gastric and duodenal ulcers, as well as, colonic ulcers secondary to Goody powder use. 3. The patient has ascites, but has never been placed on diuretic or a low- sodium diet for medical management of his recurrent ascites. We were consulted for placement of a drainage catheter in his abdominal wall for ascites. I will defer on placement of any tube until he has failed medical management. Begin Lasix 40 mg 1 p.o. daily and spironolactone 100 mg p.o. daily. 4. I will place the patient on a low-sodium, heart-healthy diet. 5. Please monitor daily liver function tests. 6. Please monitor his CBC on a regular basis, as well as a CRP. 7. Please check a PT and INR. 8. Because the patient has chronic active hepatitis B, I will recheck his hepatitis B DNA to assess for interval change. If his levels continue to rise, we will pursue authorization for treatment of his hepatitis B. Our goal was to initiate therapy once he returned to clinic. Unfortunately, the patient did not keep his clinic appointment, and states that no one at [facility] would transport him there. 9. Begin lactulose 30 mg t.i.d. for presumed hepatic encephalopathy. 10. I will discuss with the primary team regarding his medications. However, I recommend resuming nadolol 40 mg daily, as he has both gastric and esophageal varices. 11. If the patient's abdominal pain does not improve, I would consider an abdominal ultrasound- guided paracentesis. 12. Depending on those findings, one can consider a CT scan for interval reassessment of his acute and chronic abdominal pain. 13. Additional recommendations to follow based on his clinical course and results of his evaluation. cc: MD Mark Rosenberg MD MTDD
[2016-08-22] MEDS: ULTRAM PO PRN ×3 (04:57→17:47)
[2016-08-22 05:46] LABS: MANUAL DIFF NEEDED? NO
[2016-08-22] MEDS: TORADOL IV PRN ×3 (06:02→17:47)
[2016-08-22] MEDS: PRILOSEC PO SCH (06:05)
[2016-08-22 06:30] LABS: BASO% 0.5 % (0.0-0.8); EOS% 2.7 % (0.0-10.0); HEMATOCRIT 38.5 % (42.0-52.0); HEMOGLOBIN 13.4 g/dL (14.0-18.0); IMM GRAN# 0.04 X1000 (0.0-0.04); IMM GRAN% 0.5 % (0.0-0.5); LYMPH% 22.7 % (20.5-51.1); MCH 35.5 PG (27-31); MCHC 34.8 g/dL (33-37); MCV 102.1 FL (81-99); MONO# 0.91 X1000 (0.11-0.59); MONO% 12.2 % (1.7-9.3); MPV 11.7 FL (7.4-10.4); NEUT% 61.4 % (42.2-75.2); PLT 47 X1000 (130-400); RBC 3.77 XMIL (4.7-6.1)
[2016-08-22 06:33] LABS: INR 1.28; PROTIME 13.6 Seconds (9.2-11.7)
[2016-08-22 06:34] LABS: AGAP 11; ALBUMIN 2.6 g/dL (3.5-5.0); ALKALINE PHOSPHATASE 241 U/L (32-122); BUN 13 mg/dL (8-22); CALCIUM 7.8 mg/dL (8.8-10.2); CHLORIDE 104 mmol/L (98-107); COSMO 271; GOT 88 U/L (10-34); GPT 83 U/L (10-44); POTASSIUM 3.8 mmol/L (3.5-5.1); SODIUM 136 mmol/L (136-145); TCO2 21 mmol/L (25-35); TOTAL BILIRUBIN 1.09 mg/dL (0.20-1.00); TOTAL PROTEIN 6.4 g/dL (6.3-8.3)
--- NOTE | 2016-08-22 07:50 | Diag Imaging Result Doc PS360 ---
ABDOMEN/PELVIS W/CONTRAST - 08/21/2016 INDICATION: abd pain, alc liver dis, scrotal edema, ascites TECHNIQUE: A CT dose reduction protocol was used. COMPARISON: 07/04/2016 FINDINGS: There is a small amount of ascites similar to prior exams. There is some atelectasis in the lung bases. There is advanced cirrhosis. Spleen size is borderline enlarged. No bowel obstruction or inflammation. Urinary bladder, prostate, and rectum are normal. There are moderate degenerative changes of the spine. No acute or suspicious bony lesion. IMPRESSION: Small amount of ascites similar to prior exams. Stable advanced cirrhosis. Electronically signed by Werner Irving 08/22/2016 7:48 AM
[2016-08-22] MEDS: CARAFATE PO SCH ×5 (09:17→21:58)
[2016-08-22] MEDS: LASIX PO SCH (09:18)
[2016-08-22] MEDS: ALDACTONE PO SCH (09:18)
[2016-08-22] MEDS: CORGARD PO SCH (09:18)
[2016-08-22] MEDS: LACTULOSE PO SCH (09:19)
[2016-08-22] MEDS: LEVSIN-SL SL SCH ×4 (10:47→21:58)
--- NOTE | 2016-08-22 15:40 | PROGRESS NOTE ---
DATE: 08/22/2016 SUBJECTIVE: This patient is still complaining of abdominal pain. He denies nausea, vomiting. No constipation. He has been having multiple bowel movements per day. Gastroenterology Department on board. We had a CT scan done yesterday that showed a small amount of ascites, similar to prior exams and stable advanced cirrhosis. OBJECTIVE: Vital Signs: Temperature 97.8 degrees, pulse 84, respiratory rate 16, blood pressure 118/68, oxygen saturation 100% on room air. HEENT: Head normocephalic. No trauma. PERRLA. Neck supple. No JVD. No masses. Central trachea. Chest: Decreased breath sounds at the bases with mild rales. Abdomen soft, tense. Generalized painful to palpation. Distended. Normal bowel sounds. Extremities: 2+ pitting edema bilaterally. Neurologic: The patient is alert and oriented x3. No deficits. LABORATORY: WBC 7.4, hemoglobin 13.4, hematocrit 38.5, platelet 47,000 sodium 136, potassium 3.8, chloride 104 bicarbonate 21 BUN 13, creatinine 0.6, glucose 78. Calcium 7.8, AST 88, ALT 83, alkaline phosphatase 241. Albumin 2.6. ASSESSMENT AND PLAN: 1. Abdominal pain. This patient has history of liver cirrhosis and ascites. Gastroenterology evaluated this patient. They started this patient today on hyoscyamine. We will continue to monitor this patient. 2. Anemia and thrombocytopenia. This is likely secondary to liver cirrhosis. Will monitor. 3. Esophageal viruses. This patient denies any hematemesis or hemoptysis. We will continue to monitor. On proton pump inhibitor and Carafate. 4. History of hepatitis B and C, aware. 5. History of polysubstance dependence. This patient denies any kind of drug use. At this time, will monitor. 6. Deep vein thrombosis with sequential compression devices. 7. Hypokalemia, resolved. cc: Nash Llanos MD
[2016-08-22] MEDS: ROCEPHIN 2 GM/NS 2 GM/50 ML IVPB IV SCH (16:29)
--- NOTE | 2016-08-22 22:59 | PROGRESS NOTE ---
DATE: 08/21/2016 SUBJECTIVE: The patient states that he is having severe abdominal pain. He was referred for a paracentesis, but there was minimal fluid, and therefore paracentesis was canceled. The patient is concerned because he has extensive abdominal distention and reports scrotal edema. PHYSICAL EXAMINATION: Vital Signs: His blood pressure is 128/83, pulse 92, respirations 16, temperature of 98.3 degrees. Abdomen: He has significant abdominal distention compared to his previous admission. The abdomen is diffusely tender, but there is no rebound or guarding. Genitourinary: He does have scrotal edema. Neurologic: There is no evidence of asterixis. OBJECTIVE DATA: Reveals a hemoglobin of 13.0, with hematocrit of 37.2, and a white count of 8.96. He has 46,000 platelets. Sodium is 140, potassium 3.4, chloride 106, CO2 24, BUN 14, creatinine 0.5, with a glucose of 88. Calcium 7.9, total bilirubin 0.93, AST 78, ALT 81, alkaline phosphatase 233, total protein 6.3, albumin 2.7, B12 766, and folic acid 10.6. RECOMMENDATIONS: 1. I will obtain a CT scan of the abdomen and pelvis tonight. 2. I will resume his Prilosec, had inadvertently been discontinued since last admission. 3. On review of his medications, the patient is also not receiving nadolol 40 mg daily. He does have large varices due to his polysubstance abuse and cirrhosis with portal hypertension. Therefore, I will renew his nadolol. 4. If there are no findings on the CT scan to explain his abdominal pain, I would strongly consider initiation of treatment with Levsin 0.25 mg sublingual 4 times a day. 5. Additional recommendations to follow based on the results of the CT scan. cc: MD Mark Rosenberg MD Omar J. Sosa-Chirinos, MD
[2016-08-23] MEDS: TORADOL IV PRN ×3 (01:15→15:22)
[2016-08-23] MEDS: PRILOSEC PO SCH ×2 (05:42→06:44)
[2016-08-23 06:55] LABS: AGAP 10; ALBUMIN 2.3 g/dL (3.5-5.0); ALKALINE PHOSPHATASE 247 U/L (32-122); BUN 13 mg/dL (8-22); CALCIUM 7.7 mg/dL (8.8-10.2); CHLORIDE 103 mmol/L (98-107); COSMO 261; GOT 84 U/L (10-34); GPT 73 U/L (10-44); POTASSIUM 4.5 mmol/L (3.5-5.1); SODIUM 131 mmol/L (136-145); TCO2 18 mmol/L (25-35); TOTAL BILIRUBIN 0.93 mg/dL (0.20-1.00); TOTAL PROTEIN 5.7 g/dL (6.3-8.3)
[2016-08-23] MEDS: CARAFATE PO SCH ×3 (08:11→16:10)
[2016-08-23] MEDS: LASIX PO SCH (08:23)
[2016-08-23] MEDS: ULTRAM PO PRN ×2 (08:23→15:22)
[2016-08-23] MEDS: CORGARD PO SCH (08:23)
[2016-08-23] MEDS: ALDACTONE PO SCH (08:23)
[2016-08-23] MEDS: LEVSIN-SL SL SCH ×3 (08:23→16:10)
[2016-08-23 08:42] LABS: HEMATOCRIT 36.1 % (42.0-52.0); HEMOGLOBIN 12.6 g/dL (14.0-18.0); MCH 35.8 PG (27-31); MCHC 34.9 g/dL (33-37); MCV 102.6 FL (81-99); MPV 9.7 FL (7.4-10.4); RBC 3.52 XMIL (4.7-6.1)
[2016-08-23 09:46] LABS: EOS 2 % (1-10); LYMPHS 24 % (21-51); MONO 9 % (1-9)
[2016-08-23 09:49] LABS: PLT 25 X1000 (130-400)
[2016-08-23] MEDS ORDERED: MYLICON PO PRN (13:31)
--- NOTE | 2016-08-23 15:03 | PROGRESS NOTE ---
DATE: 08/23/2016 SUBJECTIVE: This patient is still complaining of abdominal pain. He denies nausea, vomiting. No constipation. He has been having multiple bowel movements per day. Gastroenterology Department is following this patient. I had a large conversation about this patient. Every time I go to the room, he is not there because he is outside the hospital smoking, also he is drinking a lot of fluid. I saw 5 glasses and 5 cups of fluid at the bedside. I told him that he cannot drink that amount. He should be drinking between 1 and 1.2 L. Also, I explained to him that Interventional Radiology did an ultrasound to localize fluid and also we did a CT scan that did not show any large amount of fluid, just a little. He is not a candidate for paracenteses at this moment. He does have walled abdominal edema and the only way to reduce this is with diuretics. I explained this to the patient and he seems to understand. OBJECTIVE: Vital Signs: Temperature 98.3 degrees, pulse 56, respiratory rate 26, blood pressure 103/58, oxygen saturation 91% on room air. HEENT: Head normocephalic. No trauma. PERRLA. Neck supple. No JVD. No masses. Central trachea. Chest: Decreased breath sounds at the bases with mild rales. Abdomen is soft. Wall edema, tense, generalize painful to palpation, distended. Normal bowel sounds. Extremities: 2+ lower extremity edema bilaterally. Neurologic: The patient is alert and oriented x3. No focal deficits. LABORATORY: WBC 7.5, hemoglobin 12.6, hematocrit 36.1, platelets 25,000. Sodium 131, potassium 4.5, chloride 103, bicarbonate 18. BUN 13, creatinine 0.5, glucose 73. Calcium 7.7. Albumin 2.3. ASSESSMENT AND PLAN: 1. Abdominal pain. This patient has a history of liver cirrhosis and ascites. We did a CT scan that did not show any large amount of ascites, just a little. We will continue with diuretics and Gastroenterology Department started the patient yesterday on hyoscyamine. 2. Anemia and thrombocytopenia. Platelets today at 25. I will transfuse this patient with 1 unit. 3. Esophageal viruses. This patient denies any hematemesis or hemoptysis. We will continue to monitor. He is on proton pump inhibitors and Carafate. 4. History of hepatitis B and C, aware. 5. History of polysubstance dependence. This patient denies any kind of drug use at this time. Will monitor. 6. Tobacco abuse. This patient has been highly advised against tobacco use. I will continue with daily cessation education. This patient is still smoking even during this hospitalization. 7. Hypokalemia, resolved. cc: Nash Llanos MD
[2016-08-23] MEDS: ROCEPHIN 2 GM/NS 2 GM/50 ML IVPB IV SCH (15:23)
[2016-08-23] MEDS ORDERED: BENADRYL IV ONE (15:38)
[2016-08-24] MEDS: CARAFATE PO SCH ×5 (01:01→21:19)
[2016-08-24] MEDS: TORADOL IV PRN ×3 (01:01→18:16)
[2016-08-24] MEDS: LEVSIN-SL SL SCH ×5 (01:02→21:19)
[2016-08-24] MEDS: ULTRAM PO PRN ×3 (01:02→18:16)
--- NOTE | 2016-08-24 05:37 | PROGRESS NOTE ---
DATE: 08/23/2016 SUBJECTIVE: The patient states he continues to have abdominal pain, but it is significantly better with Levsin 0.125 mg sublingual 4 times a day. We had a lengthy discussion, yesterday about the importance of taking diuretic in light of his anasarca. However, the primary team discovered that he has been drinking copious amounts of fluids, including cranberry juice, water, and drinks sodas. We discussed the importance of fluid restriction in order to help with his anasarca. The patient has had both an ultrasound and CT scan showing very little intra-abdominal ascitic fluid. He does have edema of the bowel wall, lower extremities, as well as the scrotum. He is currently receiving Lasix and spironolactone. We have prescribed a low- sodium diet, although it is my understanding that he has been significantly noncompliant with the diet. He continues to smoke and is frequently off the floor smoking. OBJECTIVE: Vital Signs: On exam, his blood pressure is 116/73, pulse 59, respiration 20, temperature of 98.5 degrees. HEENT: Unremarkable. There is no evidence of jaundice. Pulmonary Examination: Lungs are clear anteriorly. He has decreased breath sounds posteriorly. Cardiovascular Examination: Reveals regular rate and rhythm with no gallops or rubs. Abdominal Examination: Reveals marked abdominal distention with bowel wall edema consistent with anasarca. He has scrotal edema bilaterally. Extremities: Bilaterally have 2 to 3+ pitting edema. RECOMMENDATION: 1. Continue Protonix and Carafate. 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 2. Continue nadolol for his large esophageal varices. 3. Continue Levsin 0.125 mg sublingual 4 times a day for his abdominal pain. Although it is improved, it has not completely resolved. 4. Please avoid the use of narcotic medications in this patient who has a history of polysubstance abuse. It is reasonable to continue Ultram. 5. If the patient's abdominal pain continues, I would place him on Entocort again. This is a steroid and ideally should not be stopped abruptly. He was previously on an 8 week course with a taper. Again, if he continues to have abdominal pain, it is reasonable to consider, given that he had enteritis on his colonoscopy last month. 6. He has hepatitis B. It is important to note that his hepatitis B DNA level is decreasing without treatment. I recommend watchful waiting. 7. His hepatitis C has resolved without intervention. No further treatment is required. 8. He has multiple colon polyps on colonoscopy. At some point in the next 6-9 months, I plan a repeat colonoscopy with polypectomy as he has multiple tubular adenomas. Unfortunately, he had a very poor bowel prep on the previous exam. 9. The patient has repeatedly asked about transferred to [facility] for liver transplant, as one of his friends told him that he should consider having his liver transplant done. We discussed last admission and again this admission that he is not a candidate at this time due to his polysubstance abuse. 10. Dr. Emmanuel Ghosh will be covering the service until August 29. Please feel free to contact him if there are any urgent questions. I will ask Dr. Emmanuel Ghosh to continue to follow the patient along with you. cc: MD Nash Rosenberg MD MTDD
[2016-08-24 06:11] LABS: BASO% 0.8 % (0.0-0.8); EOS% 3.1 % (0.0-10.0); HEMATOCRIT 32.8 % (42.0-52.0); IMM GRAN# 0.04 X1000 (0.0-0.04); IMM GRAN% 0.6 % (0.0-0.5); LYMPH# 1.46 X1000 (1.2-3.4); LYMPH% 22.8 % (20.5-51.1); MANUAL DIFF NEEDED? NO; MCH 36.9 PG (27-31); MCHC 36.6 g/dL (33-37); MCV 100.9 FL (81-99); MONO# 0.63 X1000 (0.11-0.59); MONO% 9.8 % (1.7-9.3); MPV 10.9 FL (7.4-10.4); NEUT% 62.9 % (42.2-75.2); PLT 80 X1000 (130-400); RBC 3.25 XMIL (4.7-6.1)
[2016-08-24] MEDS: PRILOSEC PO SCH (06:44)
[2016-08-24 07:14] LABS: AGAP 12; BUN 15 mg/dL (8-22); CALCIUM 7.5 mg/dL (8.8-10.2); CHLORIDE 107 mmol/L (98-107); COSMO 278; POTASSIUM 4.2 mmol/L (3.5-5.1); SODIUM 138 mmol/L (136-145); TCO2 19 mmol/L (25-35)
[2016-08-24] MEDS: LASIX PO SCH (10:48)
[2016-08-24] MEDS: ALDACTONE PO SCH (10:48)
[2016-08-24] MEDS: CORGARD PO SCH (10:48)
[2016-08-24] MEDS: LACTULOSE PO SCH ×3 (10:54→18:15)
[2016-08-24] MEDS: NICODERM PATCH TD PRN (10:55)
--- NOTE | 2016-08-24 13:43 | PROGRESS NOTE ---
DATE: 08/24/2016 Patient is still having some abdominal pain. He is asking about having fluid drawn from his abdomen. From the records, he had a CT scan and ultrasound that showed little intra- abdominal ascitic fluid so he has not had a paracentesis. He is receiving Lasix and spironolactone for anasarca. Vital Signs: Temperature 98.2 degrees, pulse 67, respirations 16, blood pressure 114/68. Generally: Patient is awake, alert, and in no acute distress. Respiratory: Lung sounds essentially clear although decreased. Cardiovascular: Regular rate and rhythm. Abdomen: He does have significant abdominal distention. Extremities: With lower extremity edema bilaterally. LABORATORY: Hematology: White count 6.41, hemoglobin 12.0, hematocrit 32.8, MCV 100.9, platelet 80,000. Chemistry: Sodium 138, potassium 4.2, chloride 107, CO2 19, BUN 15, creatinine 0.6, glucose 131. ASSESSMENT: 1. Cirrhosis of the liver. 2. Hepatitis B. 3. Hepatitis C. 4. Anasarca. PLAN: Continue current medications. Continue supportive care. Albumin is low. Will give Albumin 50 gram IV for 3 days. Advised patient on fluid restriction and low-sodium diet. Continue nadolol. Continue Protonix and Carafate. Continue diuretics. We will continue to follow while Dr. Delacruz is out of town. She will return on August 29. Further plans to be made as needed. Dictated by BRITNI Mack for Emmanuel Ghosh MD cc: BRITNI [facility]
--- NOTE | 2016-08-24 15:00 | PROGRESS NOTE ---
DATE: 08/24/2016 SUBJECTIVE: This patient is still complaining of abdominal pain. He denies nausea, vomiting, diarrhea, constipation. He is having bowel movements today, one so far. Gastroenterology Department is following this patient. His albumin has been low, and they recommended to use IV albumin. OBJECTIVE: Vital Signs: Temperature 98.5 degrees, pulse 62, respiratory rate 16, blood pressure 121/77, oxygen saturation 97% on room air. HEENT: Head normocephalic. No trauma. PERRLA. Neck: Supple. No JVD. No masses. Central trachea. Chest: Decreased breath sounds at the bases with rales. Abdomen: Soft wall edema, tense, generalized tenderness to palpation. Distended. Normal bowel sounds. Extremities: There is 2+ lower extremity edema bilaterally. Neurological examination: The patient is alert and oriented x3. No focal neurological deficits. LABORATORY: WBC 6.4, hemoglobin 12, hematocrit 32.8, platelets 80. Sodium 138, potassium 4.2, chloride 107, bicarbonate 19, BUN 15, creatinine 0.6, glucose 131, calcium 7.5. ASSESSMENT AND PLAN: 1. Abdominal pain. This patient has a history of liver cirrhosis and ascites. CT scan did not show any large amount of ascites, just a little. Will continue with diuresis. He has abdominal wall edema that is painful to palpation as well. Continue with Hyoscyamine. 2. Anemia and thrombocytopenia, stable. Continue to monitor. 3. Hypoalbuminemia. We will give him intravenous albumin today. 4. Esophageal varices. This patient denies any hematemesis or hemoptysis. We will continue with the same treatment. 5. History of hepatitis B and C, aware. 6. History of polysubstance abuse. This patient denies any kind of drug abuse at this time. Will monitor. 7. Tobacco abuse. This patient has been highly advised against tobacco abuse. I will continue with daily cessation education and nicotine patch. 8. Hypokalemia, resolved. cc: Nash Llanos MD
[2016-08-24] MEDS: ROCEPHIN 2 GM/NS 2 GM/50 ML IVPB IV SCH (15:40)
[2016-08-24] MEDS: ALBUMIN 25% IV SCH (16:49)
[2016-08-25] MEDS: ULTRAM PO PRN ×2 (05:21→23:39)
[2016-08-25] MEDS: TORADOL IV PRN ×3 (05:22→23:39)
[2016-08-25] MEDS: PRILOSEC PO SCH (07:45)
[2016-08-25] MEDS: ALBUMIN 25% IV SCH (09:25)
[2016-08-25] MEDS: ALDACTONE PO SCH (09:30)
[2016-08-25] MEDS: CORGARD PO SCH (09:30)
[2016-08-25] MEDS: CARAFATE PO SCH ×4 (09:31→23:29)
[2016-08-25] MEDS: LEVSIN-SL SL SCH ×4 (09:31→23:29)
[2016-08-25] MEDS: LASIX PO SCH (09:31)
[2016-08-25] MEDS: LACTULOSE PO SCH ×3 (09:31→17:16)
--- NOTE | 2016-08-25 11:48 | PROGRESS NOTE ---
DATE: 08/25/2016 SUBJECTIVE: Patient is still having abdominal pain and swelling. He had a CT scan earlier that did not show significant ascitic fluid for paracentesis. He does have abdominal wall edema. Albumin was started for 3 days yesterday. He will get a dose today and a dose tomorrow. OBJECTIVE: Vital Signs: Temperature 98.2 degrees, pulse 67, respirations 20, blood pressure 118/67. Generally, patient is awake, alert, in no acute distress. Abdomen distended with tenderness. Lower extremities with bilateral edema. DIAGNOSTIC RESULTS: Laboratory, hematology, white count 6.41, hemoglobin 12.0, hematocrit 32.8, MCV 100.9. Chemistry: Sodium 138, potassium 4.2, chloride 107, CO2 of 19. BUN 15, creatinine 0.6. ASSESSMENT AND PLAN: 1. Cirrhosis of the liver. 2. Hepatitis B and C. 3. Anasarca. 4. Abdominal pain. 5. History of esophageal varices. PLAN: Continue supportive care. Continue symptomatic treatment. Albumin 50 g IV for a total of 3 days will. We will continue to follow. Further plans will be made as needed. Continue to follow for Dr. Delacruz until she returns next week. Dictated by BRITNI Mack for Emmanuel Ghosh MD cc: BRITNI Kenney MD [facility]
[2016-08-25] MEDS: ROCEPHIN 2 GM/NS 2 GM/50 ML IVPB IV SCH (14:09)
--- NOTE | 2016-08-25 15:10 | PROGRESS NOTE ---
DATE: 08/25/2016 SUBJECTIVE: This patient is still complaining of abdominal pain and also he is complaining of on scrotal swelling. He denies nausea, vomiting. No diarrhea, no constipation. He has been having multiple bowel movements per day. Gastroenterology department is following this patient. They recommended albumin IV. OBJECTIVE: Vital Signs: Temperature 98.2 degrees, pulse 67, respiratory rate 20, blood pressure 119/67, O2 saturation 96 on room air. HEENT: Head normocephalic. No trauma. PERRLA. Neck: Supple. No JVD. No masses. Central trachea. Chest: Decreased breath sounds at the bases with rales. Abdomen: Soft, wall edema, tense generalized tenderness to palpation, distended. Normal bowel sounds. Genitals: Scrotal swelling. Extremities: There is 2+ lower extremity edema bilaterally. Neurologic: The patient is alert and oriented x3. No focal neurological deficits. LABORATORY: WBC 6.4, hemoglobin 12, hematocrit 32.8, platelets 80,000. Sodium 138, potassium 4.2, chloride 107, bicarbonate 19, BUN 15, creatinine 0.6, glucose 131, calcium 7.5. ASSESSMENT AND PLAN: 1. Abdominal pain. This patient has history of liver cirrhosis and ascites. CT scan did not show any large amount of fluid or ascites just a little, probably less than 1 L. Will continue with diuresis. He has abdominal wall edema that is painful to palpation as well as well as scrotal edema. Continue with hyoscyamine. Gastroenterology department is following this patient closely. 2. Anemia and thrombocytopenia stable. Continue to monitor. 3. Hypoalbuminemia. We will continue with IV albumin. 4. Esophageal varices. This patient denies any hematemesis or hemoptysis. Will continue with the same treatment. 5. History of hepatitis B and C, aware. 6. History of polysubstance abuse. As per the patient, he has not been doing drugs, will monitor. 7. Tobacco abuse. This patient has been highly advised against tobacco abuse. I will continue with daily cessation education and nicotine patch. 8. Hypokalemia resolved. cc: Nash Llanos MD
[2016-08-26] MEDS: PRILOSEC PO SCH (06:59)
[2016-08-26] MEDS ORDERED: ALBUMIN 25% IV ONE (09:00)
[2016-08-26] MEDS: LEVSIN-SL SL SCH ×4 (10:58→23:19)
[2016-08-26] MEDS: CARAFATE PO SCH ×4 (10:58→23:19)
[2016-08-26] MEDS: ALDACTONE PO SCH (10:59)
[2016-08-26] MEDS: LASIX PO SCH (10:59)
[2016-08-26] MEDS: LACTULOSE PO SCH ×3 (10:59→23:19)
[2016-08-26] MEDS: CORGARD PO SCH (10:59)
[2016-08-26] MEDS: ROCEPHIN 2 GM/NS 2 GM/50 ML IVPB IV SCH (14:43)
--- NOTE | 2016-08-26 16:43 | PROGRESS NOTE ---
DATE: 08/26/2016 SUBJECTIVE: This patient is still complaining of abdominal pain but he is walking fine and going out of the hospital to smoke. He denies any nausea, vomiting. No diarrhea. No constipation. He has been having multiple bowel movements per day. Gastroenterology department is following this patient. They have recommended IV albumin. Hopefully tomorrow we will discharge this patient back to [facility]. OBJECTIVE: Vital Signs: Temperature 98.2 degrees, pulse 79, respiratory rate 24, blood pressure 140/73, oxygen saturation 97% on room air. HEENT: Head normocephalic. No trauma. PERRLA. Neck: Supple. No JVD. No masses. Central trachea. Chest: Decreased breath sounds at the bases with rales. Abdomen: Soft, wall edema, tense. Generalized tenderness to palpation. Distended. Normal bowel sounds. Genitourinary: Scrotal swelling. Extremities: There is 2+ lower extremity edema bilaterally. Neurological: The patient is alert and oriented x3. No focal neurological deficits. LABORATORY: Not done today. ASSESSMENT AND PLAN: 1. Abdominal pain. This patient has a history of liver cirrhosis and ascites. CT scan of the abdomen did not show any large amount of fluid, probably just less than 1 L of fluid. He has abdominal wall edema that is painful to palpation, as well as a scrotal edema. Continue with hyoscyamine. Gastroenterology department is following this patient closely. 2. Anemia and thrombocytopenia, stable. Continue to monitor. 3. Hypoalbuminemia. Continue IV albumin. 4. Esophageal varices. This patient denies any hematemesis or hemoptysis. We will continue with the same treatment. 5. History of hepatitis B and C. Aware. 6. History of polysubstance abuse. As per the patient, he has not been doing drugs for a very long time. Will monitor. 7. Tobacco abuse. This patient has been highly advised against tobacco use but he is still smoking even during this hospitalization. I will continue with daily cessation education and nicotine patch. cc: Nash Llanos MD
[2016-08-26] MEDS: ULTRAM PO PRN (16:49)
[2016-08-26] MEDS: NICODERM PATCH TD PRN (16:50)
[2016-08-26] MEDS: TORADOL IV PRN (16:50)
--- NOTE | 2016-08-26 17:24 | PROGRESS NOTE ---
DATE: 08/26/2016 SUBJECTIVE: Patient is resting comfortably in bed. He has a distended abdomen. Complains of some swelling of his scrotum and lower extremity. He denied abdominal pain. Has been tolerating his diet well. He tells me that he is following his dietary recommendation of 2 g salt diet and is also restricting his fluid intake. OBJECTIVE: Vitals: Today, temperature 98.2 degrees pulse 79, breathing 24, blood pressure 140/73. Abdomen: Distended with ascites, soft, but mildly tender, especially in the epigastric area, but no rebound tenderness. No guarding noted. Bowel sounds are audible. Has got scrotal edema and 2+ pitting edema in lower extremity. IMPRESSION: Cirrhosis of the liver with portal hypertension. Ascites. Scrotal edema and lower extremity edema secondary to cirrhosis and portal hypertension. Hypoalbuminemia. History of esophageal varices. RECOMMENDATION: He has received 50 g of albumin for 2 days. He is scheduled to a 3rd dose tomorrow. At this time I have encouraged him to stay on 2 g salt diet and continue his fluid pills. He is tentatively scheduled to be transferred to the retirement tomorrow and encouraged him to follow up with Dr. Delacruz and see the financial associate in [place] where he is scheduled for October and if he is still in the hospital after tomorrow, we will follow. cc: Emmanuel Ghosh MD
[2016-08-27] MEDS: TORADOL IV PRN ×2 (01:34→09:19)
[2016-08-27] MEDS: ULTRAM PO PRN ×2 (01:34→09:18)
[2016-08-27 06:23] LABS: MANUAL DIFF NEEDED? NO
[2016-08-27 06:50] LABS: BASO% 0.5 % (0.0-0.8); EOS# 0.14 X1000 (0.0-0.7); EOS% 2.3 % (0.0-10.0); HEMATOCRIT 33.5 % (42.0-52.0); HEMOGLOBIN 11.4 g/dL (14.0-18.0); IMM GRAN# 0.02 X1000 (0.0-0.04); IMM GRAN% 0.3 % (0.0-0.5); LYMPH# 1.33 X1000 (1.2-3.4); LYMPH% 21.8 % (20.5-51.1); MCH 35.5 PG (27-31); MCV 104.4 FL (81-99); MONO# 0.76 X1000 (0.11-0.59); MONO% 12.4 % (1.7-9.3); MPV 11.4 FL (7.4-10.4); NEUT% 62.7 % (42.2-75.2); PLT 74 X1000 (130-400); RBC 3.21 XMIL (4.7-6.1)
[2016-08-27 07:02] LABS: AGAP 9; ALBUMIN 3.4 g/dL (3.5-5.0); ALKALINE PHOSPHATASE 198 U/L (32-122); BUN 13 mg/dL (8-22); CALCIUM 8.1 mg/dL (8.8-10.2); CHLORIDE 109 mmol/L (98-107); COSMO 283; GOT 49 U/L (10-34); GPT 44 U/L (10-44); POTASSIUM 4.3 mmol/L (3.5-5.1); SODIUM 142 mmol/L (136-145); TCO2 24 mmol/L (25-35); TOTAL BILIRUBIN 0.88 mg/dL (0.20-1.00); TOTAL PROTEIN 5.9 g/dL (6.3-8.3)
[2016-08-27 07:25] VITALS: BP 115/68
[2016-08-27] MEDS ORDERED: CIPRO PO SCH (09:00)
[2016-08-27] MEDS: LEVSIN-SL SL SCH (09:15)
[2016-08-27] MEDS: CORGARD PO SCH (09:15)
[2016-08-27] MEDS: ALDACTONE PO SCH (09:15)
[2016-08-27] MEDS: LASIX PO SCH (09:15)
[2016-08-27] MEDS: CARAFATE PO SCH (09:15)
[2016-08-27] MEDS: LACTULOSE PO SCH (09:16)
--- NOTE | 2016-08-27 10:21 | DISCHARGE SUMMARY ---
ADMISSION DATE: 08/20/2016 DISCHARGE DATE: DISCHARGE DIAGNOSES: 1. Abdominal pain. 2. Liver cirrhosis with ascites. 3. History of hepatitis B and hepatitis C. 4. Anemia and thrombocytopenia. 5. Hypoalbuminemia. 6. Esophageal varices. 7. History of polysubstance abuse. 8. Tobacco abuse. CONSULTS: Gastroenterology department, Dr. Delacruz. HOSPITAL COURSE: A 51-year-old, male with a past medical history of liver cirrhosis, hepatitis C and B, polysubstance dependence, tobacco abuse, NSAID enteropathy. Came to the emergency department and was admitted on 08/20/2016. He is coming from [facility], complaining of abdominal pain and distention. Symptoms have been going on for the whole week previous to the admission. No fever. No chills. No shortness of breath or cough. The pain is diffuse in the abdomen and is constant. Worse with moving and better with rest. He was admitted to the medical floor and gastroenterology department was consulted. We noticed on the CT scan that this patient did have a large amount of ascites. Actually, it was less than 1 L. We planed to do a paracentesis but the amount of fluid was not that much so we did not do it. We noticed also that his abdominal wall was edematous. He had pitting edema. We started this patient on furosemide and spironolactone. We stopped all narcotic medication. We started this patient on a fluid restriction, low salt diet. This patient has been highly advised against tobacco abuse and even though we have been doing that every day, he is still going out of the hospital to smoke. Laboratory work and vital signs have been stable. He is still complaining of abdominal pain and scrotal swelling but compared with admission, he looks better. This is why today, 08/27/2016, I decided to discharge this patient with an active followup by Dr. Delacruz in 1-2 weeks. At the moment of discharge, the patient was in a stable medical condition. PHYSICAL EXAMINATION: Vital Signs: Temperature 98.4 degrees, pulse 66, respiratory rate 16, blood pressure 115/68, oxygen saturation 98 on room air. HEENT: Head normocephalic. No trauma. PERRLA. Neck: Supple. No JVD. No masses. Central trachea. Chest: Clear to auscultation. No wheezing. No rales. Abdomen: Soft. Wall edema. Moderately distended. Generalized tenderness to palpation. Normal bowel sounds. Genitourinary: Scrotal swelling. Extremities: There is 2+ lower extremity edema bilaterally. Neurological Examination: The patient is alert and oriented x3. No focal neurological deficits. LABORATORY: WBCs 6.1, hemoglobin 11.4, hematocrit 33.5, platelets 74,000. Sodium 142, potassium 4.3, chloride 109, bicarbonate 24, BUN 13, creatinine 0.5, glucose 81, and calcium 8.1. Albumin 3.4. DISCHARGE MEDICATIONS: Furosemide 40 mg p.o. daily, Levsin 0.125 mg sublingual 4 times a day, lactulose 30 mL 3 times a day to titrate to 3-4 bowel movements per day, nadolol 40 mg p.o. daily, Preparation-H 4 applications daily as needed, simethicone 80 mg p.o. 4 times a day as needed, spironolactone 100 mg p.o. daily, tramadol 50 mg p.o. q.6 hours p.r.n. pain, omeprazole 40 mg p.o. daily, ciprofloxacin 500 mg p.o. daily, Carafate 1 g p.o. 4 times a day. DIET: We recommended a low salt diet and fluid restriction. DISCHARGE INSTRUCTIONS: All the instructions were given to the patient. cc: Nash Llanos MD
== END 2016-08-27 11:41 ==
LOC: ED 12:12 → 4N 15:06 → SUATTDRO 15:06
PROVIDERS: ATTEND Internal Medicine